=== PATIENT | female | born 1945 | race Caucasian/White ===

== ENCOUNTER 2019-10-07 18:57 | Emergency (ER) | payer MEDICARE, OTHER ==
[~2019-10-07] VITALS: Ht 152.4 cm; Wt 69.4 kg
--- OUTSIDE RECORDS SUMMARY | 2019-10-07 19:00 | XMS REPORT ---
Author [facility] Address Unknown Phone Unavailable Care Team Providers Care Agency Recruiter Name Role Phone Unavailable Unavailable Payers Payer Name Policy Type Policy Number Effective Date Expiration Date Problems This patient has no known problems. Allergies, Adverse Reactions, Alerts Allergy Name Allergy Type Status Severity Reaction(s) Onset Date Inactive Date Treating Clinician Comments No Known Allergies DA Active U 2014-10-28 00:00:00 Medications This patient has no known medications. Results Test Description Test Time Test Comments Text Results Atomic Results Result Comments - MRI PELVIS W/O CON 2019-03-22 14:44:00 FAX: Oleg Gallegos MD [phone] [place]: St: REG FAX: Maggie Franklin MD [phone] Name: CINTIAADRIANEBlanca HARDY [facility] : 1945 Age/S: 73/F [address] [place], [place] [address] Unit #: [id number] Loc: [place] [address] Phys: Maggie Franklin MD Acct: [id number] Dis Date: Status: REG CLI PHONE #: [phone] Exam Date: 03/22/2019 0857 FAX #: [phone] Reason: OSTEITIS DEFORMANS OF MULTIPLE SITES EXAMS: CPT CODE: [id number] MRI PELVIS W/O CON 13864 Study: - MRI PELVIS W/O CON 03/22/2019 7:16 AM Patient Name: ADRIANE CHAMBERLAIN MR: [id number] : 1945; Age: 73 years y/o Female Ordering Physician: Maggie Franklin MD Clinical Indication: OSTEITIS DEFORMANS OF MULTIPLE SITES Comparison: None TECHNIQUE: Multiplanar MR pelvis was performed with and without intravenous gadolinium on a 1.5 Raquel magnet. FINDINGS: ORGANS: Anteverted uterus. Small T2 hyperintense intramural cystic lesion in inferior mid uterine body. Colonic diverticulosis is noted. No bowel obstruction. URINARY BLADDER: Appropriate for degree of distention. LYMPH NODES: No suspicious lymph nodes. PELVIC FLUID: No significant fluid identified. SOFT TISSUES: OSSEOUS STRUCTURES: Diffuse T1 hypointensity seen throughout the lower lumbar spine, sacrum, and pelvis. IMPRESSION: Diffuse sclerotic changes throughout the spine and pelvis, consistent with history of advanced Paget's disease. Differential diagnosis includes osteoblastic metastases and leukemia/lymphoma. SL: [id number] PAGE 1 Signed Report (CONTINUED) FAX: Oleg Gallegos MD [phone] [place]: St: REG FAX: Maggie Franklin MD [phone] ------- Name: ADRIANE CHAMBERLAIN [facility] : 1945 Age/S: 73/F [address] [place] [address] Unit #: [id number] Loc: [place] [address] Phys: Maggie Franklin MD Acct: [id number] Dis Date: Status: REG CLI PHONE #: [phone] Exam Date: 03/22/201957 FAX #: [phone] Reason: OSTEITIS DEFORMANS OF MULTIPLE SITES EXAMS: CPT CODE: [id number] MRI PELVIS W/O CON 47190 <Continued> at 6769 Reported and signed by: Valentino Vega M.D. CC: Oleg Harley MD; Maggie Franklin MD Technologist: RT Lynda(R)(MR) Trnscrd Date/Time/By: 03/22/2019 (4240) : By: [email or web address] Orig Print D/T: S: 03/22/2019 (8999) PAGE 2 Signed Report - NM BONE WHOLE BODY 2019-03-22 11:50:00 FAX: Oleg Gallegos MD [phone] [place]: St: REG FAX: Maggie Franklin MD [phone] Name: ADRIANE CHAMBERLAIN [facility] : 1945 Age/S: 73/F [address] [place] [address] Unit #: [id number] Loc: [place] [address] Phys: Maggie Franklin MD Acct: [id number] Dis Date: Status: REG CLI PHONE #: [phone] Exam Date: 03/22/2019 1124 FAX #: [phone] Reason: M88.89 OSTEITIS DEFORMANS OF MULTIPLE SITES EXAMS: CPT CODE: [id number] NM BONE WHOLE BODY 43311 Nuclear medicine whole-body bone scan 03/22/2019 HISTORY: Neck, shoulder, back pain. PROCEDURE: After the intravenous injection of 25 mCi of technetium 99m HDP, whole body anterior and posterior projection imaging was performed followed by spot images of the ribs, pelvis, and knees. Comparison is made to 07/04/2014 FINDINGS: There is increased activity within the kidneys and urinary bladder. Increased activity within the T9 vertebral body is unchanged. Increased activity within the L4 vertebral body is unchanged. There are mild degenerative changes in both knees, also unchanged. Increased activity involving the calvarium is seen anteriorly, likely representing hyperostosis frontalis. IMPRESSION: 1. No significant change in uptake in lower thoracic spine, lumbar spine, and bilateral knees suggestive of degenerative change. 2. No new area of increased activity. SL: [id number] at 1150 Reported and signed by: Yo Otto M.D. CC: Oleg Harley MD; Maggie Franklin MD Technologist: RT Shirley(R)([facility]) Trnscrd Date/Time/By: 03/22/2019 (0345) : By: [email or web address] Orig Print D/T: S: 03/22/2019 (1838) PAGE 1 Signed Report CREATININE W ESTIMATED GFR 2019-03-22 11:19:00 BEDSIDE CREATININE (test code=CREATBED) 0.6 MG/DL 0.6-1.3 GLOMERULAR FILTRATION RATE POC (test code=GFRBED) 104 ML/MIN ENTER BEDSIDE CREATININE RESULT: 0.61Serial Number: [id number] Name of User Perfo rming Test: R.KELVIN- XR BONE SURVEY [id number] 10:27:00 FAX: Oleg Gallegos MD [phone] [place]: St: [facility] FAX: Maggie Franklin MD [phone] Name: ADRIANE CHAMBERLAIN [facility] : 1945 Age/S: 73/F [address] [place] [address] Unit #: [id number] Loc: [place] [address] Phys: Maggie Franklin MD Acct: [id number] Dis Date: Status: REG CLI PHONE #: [phone] Exam Date: 03/22/2019 1001 FAX #: [phone] Reason: M88.89 OSTEITIS DEFOR MINS OF MULTIPLE SITES EXAMS: CPT CODE: [id number] XR BONE SURVEY COMP 35948 Study: - XR BONE SURVEY COMP 03/22/2019 7:01 AM Pat ient Name: ADRIANE CHAMBERLAIN MR: [id number] : 1945; Age: 73 y ears y/o Female Ordering Physician: Maggie Franklin MD Clini candice Indication: M88.89 OSTEITIS DEFORMINS OF MULTIPLE SITES Compar jose: None SKULL: Patchy sclerotic areas are seen in the f rontal and occipital calvarium SPINE: Diffuse sclerotic serna ges throughout the vertebral bodies and posterior elements. CHEST AND RIBS: Sclerotic changes throughout the bilateral ribs PE LVIS: Mild sclerotic changes throughout the pelvis BILATERAL HUMER US: Mild patchy sclerotic disease throughout the bilateral humeri BILATERAL FEMURS: Heterogeneous patchy sclerotic changes in the bila teral femurs IMPRESSION: Diffuse scler otic changes within the axial and appendicular skeletons are nonspecific , and may represent advanced Paget's disease. Osteoblastic metastases a nd lymphoma/leukemia are also differential. SL: [id number] Electronically Signed by Tahir Vega on at 1027 Reported and signed by: Corey Quijano PAGE 1 Signed Report (GO NUCARSON) FAX: Oleg Gallegos MD [phone] [place]: St: REG FAX : Maggie Franklin MD [phone] Name: ADRIANE CHAMBERLAIN [facility] : 1945 Age/S: 73/F [address] [place] [address] Unit #: [id number] Loc: [place] [facility] [place] [address] Phys: Maggie Franklin MD Acct: [id number] Dis Date: Status: REG C CORA PHONE #: [phone] Exam Date: 03/22 1001 FAX #: [phone] Reason: M88.89 OSTEITIS DEFORMINS OF MULTIPLE SITES EXAMS: CPT CODE: [id number] XR BONE SURVEY COMP 11584 <Continued> CC: Oleg Harley MD; Maggie Franklin MD Technologist: Cta Hill, RT(R), RTT Trnscrd Date/Time/By: 03/22/2019 (1027) : By: [email or web address] Orig Print D/T: S: 03/22/2019 (1035) PAGE 2 Signed Report - MRI L-SPINE W/O [id number] 10:24:00 FAX: Oleg Gallegos MD [phone] [place]: St: REG FAX: Maggie Franklin MD [phone] Name: ADRIANE CHAMBERLAIN [facility] : 1945 Age/S: 73/F [address] [place] [address] Unit #: [id number] Loc: [place] [address] Phys: Maggie Franklin MD Acct: [id number] Dis Date: Status: REG CLI PHONE #: [phone] Exam Date: 03/22/2019 0857 FAX #: [phone] Reason: OSTEITIS DEFORMANS OF MULTIPLE SITES EXAMS: CPT CODE: [id number] MRI L-SPINE W/O CONT 04801 Study: - MRI L-SPINE W/O CONT 03/22/2019 7:16 AM See pitts Name: ADRIANE CHAMBERLAIN MR: [id number] : 1945; Age: 73 years y/o Female Ordering Physician: Maggie Franklin MD Clin ical Indication: OSTEITIS DEFORMANS OF MULTIPLE SITES Comparison: None TECHNIQUE: Multiplanar T1, T2, and STIR weighted noncontrast MRI of the lumbar spine was performed on the 1.5 Raquel magnet. FINDINGS: ALIGNMENT AND GENERAL ASSESSMENT: Five lumbar type vertebral bodies are assumed for purpose of this dic tation with conus medullaris termination at L1-L2. Again seen is severely T1 hypointense bone marrow within the vertebral bodies and posterior eleme nts at all levels. T2 hyperintense renal cysts bilaterally. No spina l cord signal abnormality. DISC SPACES: L1-L 2: No significant disc protrusion, spinal canal narrowing, or neural andres inal narrowing. L2-L3: Symmetric disc bulge without foraminal or c anal stenosis. L3-L4: Symmetric disc bulge with mild bilateral fo raminal stenosis. L4-L5: Symmetric disc bulge without foraminal o r canal stenosis. L5-S1: No significant disc protrusion, spinal c anal narrowing, or neural foraminal narrowing. IMP RESSION: PAGE 1 Signed Report (CONTINUED) FAX: Oleg Gallegos MD [phone] [place]: St: REG FAX: Maggie Franklin MD [phone] Name: ADRIANE MCWILLIAMS [facility] : 1945 Age/S: 73/F [address] [place] [address] Unit #: [id number] Loc: [place] [address] Phys: Maggie Franklin MD Acct: [id number] Dis Date: Status: REG CLI PHONE #: [phone] Exam Date: 03/22/2019 0857 FAX #: [phone] R jake: OSTEITIS DEFORMANS OF MULTIPLE SITES EXAMS: CPT CODE: [id number] MRI L-SPINE W/O CONT 30992 <Continued> 1. Diffuse abnormal bone marrow signal at all levels, representing sclerotic changes, similar to the bone marrow signal seen in the cervical spine in October 2017. Given the patient's history, this may represent advanced Paget's disease, but osteoblastic metastases and lymphoma/leukemia are also the differential. 2. No spinal cord signal abnormality. 3. Mild degenerative bilateral foraminal stenosis at L3-L4. SL: [id number] at 1024 Reported and signed by: Valentino Vega M.D. CC: Oleg Harley MD; Maggie Franklin MD Technologist: RT Lynda(R)(MR) Trnscrd Date/Time/By: 03/22/2019 (1024) : By: [email or web address] Orig Print D/T: S: 03/22/2019 (1027) PAGE 2 Signed Report
[2019-10-07] MEDS ORDERED: ACETAMINOPHEN 325 MG TAB PO ONE (19:07)
[2019-10-07] MEDS ORDERED: SODIUM CHLORIDE 0.9% 1000ML 1,000 ML IV STA (19:07)
[2019-10-07] MEDS ORDERED: ALBUTEROL SULF 0.083% NEB SOLN 3 ML NEB NEB STA (19:07)
[2019-10-07] MEDS ORDERED: IPRATROPIUM BROMIDE 0.02% 2.5 ML NEB NEB STA (19:07)
[2019-10-07] MEDS ORDERED: CEFTRIAXONE SOD 1 GM VIAL IV ONE (19:15)
[2019-10-07] MEDS ORDERED: CLONIDINE HCL 0.1 MG TAB PO ONE (19:15)
[2019-10-07] MEDS ORDERED: IPRATROPIUM BROMIDE 0.02% 2.5 ML NEB ONE (19:59)
[2019-10-07] MEDS ORDERED: ACETAMINOPHEN 325 MG TAB ONE (19:59)
--- NOTE | 2019-10-07 19:59 | Diagnostic Imaging Report ---
EXAMINATION: CXR 2 VIEW - HOPD INDICATION: Chest congestion ^cough ^20191007 ^1919 COMPARISON: None FINDINGS: PA and lateral views TUBES and LINES: None. LUNGS: Diffuse hyperinflation suggestive of small airways disease. Subsegmental atelectasis in the left lung base. There is no evidence of pneumonia or pulmonary edema. PLEURA: No pleural effusion or pneumothorax. HEART AND MEDIASTINUM: The heart is enlarged. The descending thoracic aorta is tortuous. BONES AND SOFT TISSUES: Increased attenuation of the skeleton. No focal osseous lesions. Soft tissues are unremarkable. UPPER ABDOMEN: Unremarkable. IMPRESSION: 1. Diffuse hyperinflation is suggestive of small airways disease. No acute pulmonary process. 2. Increased attenuation of the skeleton may be the result of renal osteodystrophy or metastasis. Correlation with clinical history is needed. Signed by: Dr. Soniya Shen MD on 10/07/2019 7:56 PM
[2019-10-07] MEDS ORDERED: CEFTRIAXONE SOD 1 GM/NS 50 ML 50 ML IV ONE (20:00)
[2019-10-07] MEDS ORDERED: ALBUTEROL SULF 0.083% NEB SOLN 3 ML NEB ONE (20:00)
[2019-10-07 20:53] VITALS: BP 122/66
== END 2019-10-07 20:30 | disposition home or self-care (01) ==
LOC: FSED 18:57
DX: R50.9 Fever, unspecified (principal); R05 Cough; J09.X2 Influenza due to identified novel influenza A virus with other respiratory manifestations; Z85.828 Personal history of other malignant neoplasm of skin
CPT/HCPCS: 71046; 80053; 81003; 82553; 83518; 83880; 84484; 85025; 87400; 93005; 99284; J0696; J7030

== ENCOUNTER 2019-12-28 18:17 | Emergency (ER) | payer MEDICARE, OTHER ==
[~2019-12-28] VITALS: Ht 152.4 cm; Wt 70.4 kg
--- OUTSIDE RECORDS SUMMARY | 2019-12-28 18:20 | XMS REPORT | Summary of Care ---
Author Author [facility] Organization [facility] Address Unknown Phone Unavailable Encounter HQ Javanr_jason(FIN) [id number] Date(s): 12/15/16 - 12/15/16 [facility] [address] [place] [address]- Discharge Disposition: Home or Self Care Attending Physician: Fanny Gudino MD Referring Physician: Fanny Gudino MD Vital Signs No data available for this section Problem List Condition Effective Dates Status Health Status Informan t Abdominal Active pain(Confirmed) Clostridium Active difficile(Confirmed) 1 Diarrhea(Confirmed) Active Osteoporosis(Confirm Active ed) 1Problem added by Discern Expert. Allergies, Adverse Reactions, Alerts Substance Reaction Severity Status NKDA Active Medications No data available for this section Results No data available for this section Immunizations Given and Recorded Vaccine Date Status Refusal Reason influenza virus vaccine, inactivated 10/02/10 G iven Procedures No data available for this section Social History Social History Type Response Assessment and Plan No data available for this section
--- OUTSIDE RECORDS SUMMARY | 2019-12-28 18:20 | XMS REPORT ---
Author Author [facility] t Organization [facility] Address [address] [place] [address] Phone Unavailable Care Team Providers Care Public Employment Mediator Name Role Phone Georgina LAGUNA MD PCP Hector DUEÑAS Attphys Unavailable Ruth Gudino Attphys Payers Payer Name Policy Type Policy Number Effective Date Expiration Date S johan Medicare A & B [id number] 2008 00:00:00 [facility] [id number] 1996 00:00:00 [facility] Problems This patient has no known problems. Allergies, Adverse Reactions, Alerts Allergy Name Allergy Type Status Severity Reaction(s) Onset Date Inacti ve Date Treating Clinician Comments Source No Known Allergies DA Active U 2014-10-28 00:00:00 [facility] Medications This patient has no known medications. Procedures This patient has no known procedures. Encounters Start Date/Time End Date/Time Encounter Type Admission Type [facility] Care Department Encounter ID Source 2019-10-07 18:57:00 2019-10-07 20:30:00 Departed Emergency Room 1 TERENCE DUEÑAS [facility] [id number] [facility] 2016-12-15 09:05:00 2016-12-15 23:59:00 Outpatient Fanny Lim [facility] [id number] [facility] Results Test Description Test Time Test Comments Results Result Comments Source CXR 2 VIEW - HOPD 2019-10-07 19:36:00 [facility] [address] [place] [address] Patient Name: ADRIANE CHAMBERLAIN MR #: [id number] : 1945 Age/Sex: 74/F Req #: [id number] Adm Physician: Ordered by: TERENCE DUEÑAS MD Report #: [id number] Location: [facility] Room/Bed: Procedure: [id number] HOPD/CXR 2 VIEW - HOPD Exam Date: 10/07/19 Exam Time: 1919 REPORT STATUS: Signed EXAMINATION: CXR 2 VIEW - HOPD INDICATION: Chest congestion cough 20191007 COMPARISON: None FINDINGS: PA and lateral views TUBES and LINES: None. LUNGS: Diffuse hyperinflation suggestive of small airways disease. Subsegmental atelectasis in the left lung base. There is no evidence of pneumonia or pulmonary edema. PLEURA: No pleural effusion or pneumothorax. HEART AND MEDIASTINUM: The heart is enlarged. The descending thoracic aorta is tortuous. BONES AND SOFT TISSUES: Increased attenuation of the skeleton. No focal osseous lesions. Soft tissues are unremarkable. UPPER ABDOMEN: Unremarkable. IMPRESSION: 1. Diffuse hyperinflation is suggestive of small airways disease. No acute pulmonary process. 2. Increased attenuation of the skeleton may be the result of renal osteodystrophy or metastasis. Correlation with clinical history is needed. Signed by: Dr. Conrad Bell MD on 10/07/2019 7:56 PM Dictated By: CONRAD BELL MD 55 Transcribed By: NANNETTE on 10/07/191955 COPY TO: TERENCE DUEÑAS MD - MRI PELVIS W/O CON 2019-03-22 14:44:00 FAX: Oleg Gallegos MD [phone] [place]: St: REG FAX: Maggie Franklin MD [phone] Name: ADRIANE CHAMBERLAIN OLESYASOLITARIO [facility] : 1945 Age/S: 73/F [address] [place] [address] Unit #: [id number] Loc: [place] [address] Phys: Maggie Franklin MD Acct: [id number] Dis Date: Status: REG CLI PHONE #: [phone] Exam Date: 03/22/2019 0857 FAX #: [phone] Reason: OSTEITIS DEFORMANS OF MULTIPLE SITES EXAMS: CPT CODE: [id number] MRI PELVIS W/O CON 17890 Study: - MRI PELVIS W/O CON 03/22/2019 7:16 AM Patient Name: ADRIANE CHAMBERLAIN MR: [id number] : 1945; Age: 73 years y/o Female [...] diagnosis includes osteoblastic metastases and leukemia/lymphoma. SL: [id number] PAGE 1 Signed Report (CONTINUED) FAX: Oleg Gallegos MD [phone] [place]: St: REG FAX: Maggie Franklin MD [phone] ------- Name: ADRIANE CHAMBERLAIN OLESYASOLITARIO [facility] : 1945 Age/S: 73/F [address] [place] [address] Unit #: [id number] Loc: [place] [address] Phys: Maggie Franklin MD Acct: [id number] Dis Date: Status: REG CLI PHONE #: [phone] Exam Date: 03/22/2019 0857 FAX #: [phone] Reason: OSTEITIS DEFORMANS OF MULTIPLE SITES EXAMS: CPT CODE: [id number] MRI PELVIS W/O CON 43208 <Continued> at 1971 Reported and signed by: Valentino Vega M.D. CC: Oleg Laguna MD; Maggie Franklin MD Technologist: Loly Bloom RT(R)(MR) Trnscrd Date/Time/By: 03/22/2019 (3001) : By: [email or web address] Orig Print D/T: S: 03/22/2019 (2280) PAGE 2 Signed Report - NM BONE WHOLE BODY 2019-03-22 11:50:00 FAX: Oleg Gallegos MD [phone] [place]: St: REG FAX: Maggie Franklin MD [phone] Name: ADRIANE CHAMBERLAIN [facility] : 1945 Age/S: 73/F [address] [place] [address] Unit #: [id number] Loc: [place] [address] Phys: Maggie Franklin MD Acct: [id number] Dis Date: Status: REG CLI PHONE #: [phone] Exam Date: 03/22/2019 1124 FAX #: [phone] Reason: M88.89 OSTEITIS DEFORMANS OF MULTIPLE SITES EXAMS: CPT CODE: [id number] OR BONE WHOLE BODY 67034 Nuclear medicine whole-body bone scan 03/22/2019 HISTORY: [...] No new area of increased activity. SL: [id number] at 1150 Reported and signed by: Yo Otto M.D. CC: Oleg Laguna MD; Maggie Franklin MD Technologist: DOLORES Watson)([facility]) Trnscrd Date/Time/By: 03/22/2019 (4150) : By: [email or web address] Orig Print D/T: S: 03/22/2019 (6558) PAGE 1 Signed Report CREATININE W ESTIMATED GFR 2019-03-22 11:19:00 Test Item BEDSIDE CREATININE (test code = CREATBED) 0.6 MG/DL 0.6-1.3 N GLOMERULAR FILTRATION RATE POC (test code = GFRBED) 104 ML/MIN ENTER BEDSIDE CREATININE RESULT: 0.61Serial Number: [id number] Name of User Perfo rming Test: PAVEL- XR BONE SURVEY [id number] 10:27:00 FAX: Oleg Gallegos MD [phone] [place]: St: REG FAX: Maggie Franklin MD [phone] Name: ADRIANE CHAMBERLAIN [facility] : 1945 Age/S: 73/F [address] [place] [address] Unit #: [id number] Loc: [facility] [place] [address] Phys: Maggie Franklin MD Acct: [id number] Dis Date: Status: REG CLI PHONE #: [phone] Exam Date: 03/22/2019 1001 FAX #: [phone] Reason: M88.89 OSTEITIS DEFOR MINS OF MULTIPLE SITES EXAMS: CPT CODE: [id number] XR BONE SURVEY COMP 12885 Study: - XR BONE SURVEY COMP 03/22/2019 7:01 AM Pat ient Name: ADRIANE HAYLEY LANZACONCEPCIÓN MR: [id number] : 1945; Age: 73 y ears y/o [...] a nd lymphoma/leukemia are also differential. SL: [id number] Electronically Signed by Tahir Vega on at 1027 Reported and signed by: Corey Quijano PAGE 1 Signed Report (GO NUED) FAX: Oleg Gallegos MD [phone] [place]: St: REG FAX : Maggie Franklin MD [phone] Name: ADRIANE CHAMBERLAINJAILYNSOLITARIO [facility] : 1945 Age/S: 73/F [address] [place] [address] Blvd Unit #: [id number] Loc: [place] [address] Phys: Maggie Franklin MD Acct: [id number] Dis Date: Status: REG [place] PHONE #: [phone] Exam Date: 03/22 1001 FAX #: [phone] Reason: M88.89 OSTEITIS DEFORMINS OF MULTIPLE SITES EXAMS: CPT CODE: [id number] XR BONE SURVEY COMP 57753 <Continued> CC: Oleg Laguna MD; Maggie Franklin MD Technologist: Cat Hill, RT(R), RTT Trnscrd Date/Time/By: 03/22/2019 (2004) : By: [email or web address] Orig Print D/T: S: 03/22/2019 (6151) PAGE 2 Signed Report - MRI L-SPINE W/O [id number] 10:24:00 FAX: Oleg Gallegos MD [phone] [place]: St: REG FAX: Maggie Franklin MD [phone] Name: ADRIANE CHAMBERLAIN [facility] : 1945 Age/S: 73/F [address] [place] [address] Unit #: [id number] Loc: [place] [address] Phys: Maggie Franklin MD Acct: [id number] Dis Date: Status: REG CLI PHONE #: [phone] Exam Date: 03/22/2019 0857 FAX #: [phone] Reason: OSTEITIS DEFORMANS OF MULTIPLE SITES EXAMS: CPT CODE: [id number] MRI L-SPINE W/O CONT 11712 Study: - MRI L-SPINE W/O CONT 03/22/2019 7:16 AM Pa tient Name: ADRIANE CHAMBERLAIN MR: [id number] : 1945; Age: 73 years y/o Female [...] Signed Report (CONTINUED) FAX: Oleg Gallegos MD [phone] [place]: GC St: REG FAX: Maggie Franklin MD [phone] Name: ADRIANE MCWILLIAMS [facility] : 1945 Age/S: 73/F [address] [place] [address] Unit #: [id number] Loc: [place] [address] Phys: Maggie Franklin MD Acct: [id number] Dis Date: Status: REG CLI PHONE #: [phone] Exam Date: 03/22/2019 0857 FAX #: [phone] R jake: OSTEITIS DEFORMANS OF MULTIPLE SITES EXAMS: CPT CODE: [id number] MRI L-SPINE W/O CONT 16742 <Continued> 1. Diffuse abnormal bone marrow signal at all levels, representing sclerotic changes, similar to the bone marrow signal seen in the cervical spine in October 2017. Given the patient's history, this may represent advanced Paget's disease, but osteoblastic metastases and lymphoma/leukemia are also the differential. 2. No spinal cord signal abnormality. 3. Mild degenerative bilateral foraminal stenosis at L3-L4. SL: [id number] at 1024 Reported and signed by: Valentino Vega M.D. CC: Oleg Laguna MD; Maggie Franklin MD Technologist: RT Lynda(Jose Angel)(MR) Trnscrd Date/Time/By: 03/22/2019 (1024) : By: [email or web address] Orig Print D/T: S: 03/22/2019 (1027) PAGE 2 Signed Report
--- OUTSIDE RECORDS SUMMARY | 2019-12-28 18:20 | XMS REPORT | Continuity of Care Document ---
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 [facility] Diarrhea (finding) Active Problem 12/18/2016 [facility] Osteoporosis (disorder) Active Problem 12/18/2016 [facility] CHRONIC OBSTRUCTIVE PULMONARY DISEASE, U Active [facility] Medications No Data Provided for This Section Allergies, Adverse Reactions, Alerts No Known Medication Allergies Immunizations Immunization Date Given Site Status Last Updated Comments Source influenza virus vaccine, inactivated 10/02/2010 Right deltoid completed [facility] Results No Data Provided for This Section Pathology Reports No Data Provided for This Section Diagnostic Reports Report Value Date Source CT Low Dose Lung Screening Pat ient Name: ADRIANE CHAMBERLAIN : 1945; Age: 71 years Female MR: [id number] Study: CT Low Dose Lung Screening 12/15/2016 9:35 AM CDT Clinical Indication: COPD; low dose lung screen - Norma - CT DLP - 96 mGycm; BMI 28.2; CTDI - 2.56L COMPARISON: None HISTORY: Asymptomatic patient meeting NCCN high-risk criteria for lung screening. Patient is not currently a smoker. There is a 20 pack-year history of smoking. COMPARISON: None. TECHNIQUE: Noncontrast, volumetric low-dose CT Chest. kVp = 120 mA = 219 FINDINGS: LUNG NODULES: No nodule is seen. Other Lung Disease: Centrilobular emphysema. Mild bronchiectasis in the perihilar lungs. Dependent atelectasis or mild scarring in the lower lungs. Aorta: Atherosclerosis. Heart / Pericardium: Normal size. Coronary Ca++ / Atherosclerosis: Calcification mitral annulus Adenopathy: 1.3 cm lymph node adjacent to the anterior pericardium. Base of Neck: Several small nodules in the thyroid. Upper Abdomen: No significant finding. OTHER INCIDENTALS: Extensive sclerosis of the spine, sternum, ribs and bony shoulders. LUNG-RADS CATEGORY AND IMPRESSION: 1. Lung RADS Category 1, negative. Maco nue annual screening with low-dose CT. 2. Extensive sclerotic bone lesions of t he spine, ribs and shoulders suspicious for metastatic disease; metabolic bone disorder may be another consideration if no history of malignancy. 3. Mildly enlarged mediastinal lymph nod e. 4. Mild bronchiectasis. Findings discussed with Dr. Gudino at time of dictation. Thank you for choosing the [facility] Lung Screening Program. [id number] 12/15/2016 [facility] Consultation Notes No Data Provided for This Section Discharge Summaries No Data Provided for This Section History and Physicals No Data Provided for This Section Vital Signs No Data Provided for This Section Encounters Location Location Details Encounter Type Encounter Number Reason For Visit Attending Provider ADM Date DC Date Status Source [facility] Outpatient [id number] Fanny Gudino 12/15/2016 12/16/2016 [facility] Procedures No Data Provided for This Section Assessment and Plan No Data Provided for This Section Plan of Care No Data Provided for This Section Social History Social History Date Source Social History TypeResponse 12/16/2016 [facility] Family History No Data Provided for This Section Advance Directives No Data Provided for This Section Functional Status No Data Provided for This Section
[2019-12-28] MEDS ORDERED: ACETAMINOPHEN 325 MG TAB PO STA (18:40)
[2019-12-28] MEDS ORDERED: SODIUM CHLORIDE 0.9% 500ML 500 ML IV STA (18:40)
[2019-12-28] MEDS ORDERED: CEFTRIAXONE SOD 1 GM VIAL IV ONE (18:45)
--- NOTE | 2019-12-28 18:51 | Emergency Department Note ---
History of Present Illnes History of Present Illness Chief Complaint: General Medicine Complaints History of Present Illness This is a 74 year old female hx emphysema not on home oxygen yet, c/o f/c left sided sore throat for 3 hours, temp was high 101. at home. 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 she aslo c/o bladder pain, some dysuria, and abdominal discomfort for 3 days . 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, Family Member Arrival Mode: Car [employer] System Admin Required: No Onset (how long ago): hour(s) (3 hours) Severity: moderate Duration (how long): hour(s) (3 hours) Timing of current episode: unable to specify Progression: improving Context: other (abdominal discomfort and constipation) Relieving factors: medication Exacerbating factors: none Associated symptoms: fever/chills, malaise Treatments prior to arrival: antipyretic Past Medical/Family History Physician Review I have reviewed the patient's past medical and family history. Any updates have been documented here. Past Medical History Recent Fever: Yes Clinical Suspicion of Infectio: Yes New/Unexplained Change in Ment: No Past Medical History: COPD Other Medical History: emphysema Past Surgical History: , Hernia Repair Other Surgery: bilateral carpal tunnel repair skin cancer removed from her nose Social History Smoking Cessation: Former smoker Counseling Performed: No Alcohol Use: None Any Illegal Drug Use: No TB Exposure/Symptoms: No Physically hurt or threatened: No Family History Family history of heart diseas: No Other Last Tetanus: OVER 10 YEARS Any Pre-Existing Lines (PICC,: No Is patient up to date on immun: Yes Last Flu: UTD Last Pneumovax: UTD Review of Systems Review of Systems Constitutional: no symptoms, as per HPI, chills, fever EENTM: no symptoms, throat pain Cardiovascular: no symptoms Respiratory: as per HPI, other (She has SOB but it is her base line) Gastrointestinal: constipation Genitourinary: dysuria (bladder discomfort), other Musculoskeletal: no symptoms Neurological: no symptoms Psychological: no symptoms Endocrine: no symptoms Hematological/Lymphatic: no symptoms Review of other systems All other systems reviewed and negative. Physical Exam Related Data Allergies: Coded Allergies: No Known Allergies (Unverified , 10/07/19) Triage Vital Signs Vital Signs Date Time Temp Pulse Resp B/P (MAP) Pulse Ox O2 Delivery O2 Flow Rate FiO2 12/28/19 18:23 99.6 77 18 172/97 95 Vital signs reviewed: Yes Physical Exam CONSTITUTIONAL Constitutional: well-developed, well-nourished, obese HENT HENT: normocephalic, atraumatic, oropharynx clear/moist, nose normal HENT L/R: left ext ear normal, right ext ear normal EYES Eyes: PERRL, conjunctivae normal NECK Neck: ROM normal PULMONARY Pulmonary: effort normal, breath sounds normal CARDIOVASCULAR Cardiovascular: regular rhythm, heart sounds normal, capillary refill normal, normal rate GASTROINTESTINAL Abdominal: soft, nontender, bowel sounds normal, other (obsese abdomen) GENITOURINARY Genitourinary: exam deferred SKIN Skin: warm, dry MUSCULOSKELETAL Musculoskeletal: ROM normal NEUROLOGICAL Neurological: alert, oriented x 3, no gross motor or sensory deficits PSYCHOLOGICAL Psychological: mood/affect normal, judgement normal Results Laboratory Lab results reviewed: Yes Laboratory comments lactic acid normal, CBC wnl, CMP wnl. Ua has large leukocyte esterase and positive nitrite c/w UTI. Since she has fever from UTI, she is likely to have gram negative sepsis Imaging Imaging results reviewed: Yes Impressions COPD, no pna Imaging Comments I have read radiology report. since pt has no cough, her SOB is at her base line, I doubt she has PNA. Critical Care Time Subsequent provider I assumed direction of critical care for this patient from another provider of my specialty. Assessment & Plan Assessment & Plan Problems: (1) Gram negative sepsis (2) Urinary tract infection (3) Fever (4) Constipation Assessment & Plan most likely UTI, but she has sore throat so will look for viral illness as well Reassessment Reassessment time: 19:28 Reassessment doing better,taking PO well, want sot go home Depart Disposition: HOME, SELF-CARE Last Vital Signs Date Time Temp Pulse Resp B/P (MAP) Pulse Ox O2 Delivery O2 Flow Rate FiO2 12/28/19 18:23 99.6 77 18 172/97 95 Home Meds Active Scripts Magnesium Hydroxide (MILK OF MAGNESIA) 400 Mg/5 Ml Oral.susp, 60 ML PO ONCE for 1 Day, #60 ML Prov:TERENCE DUEÑAS MD 12/28/19 Cefdinir (OMNICEF) 300 Mg Capsule, 300 MG PO BID for 10 Days, CAP Prov:TERENCE DUEÑAS MD 12/28/19 Medications in the ED Ceftriaxone Sodium 1 gm ONCE ONCE IV ; Start 12/28/19 at 18:45; Stop 12/28/19 at 18:46; Status UNV Sodium Chloride 500 ml @ 0 mls/hr Q0M STAT IV ; Start 12/28/19 at 18:40; Stop 12/28/19 at 18:41 Acetaminophen 650 mg ONCE STAT PO ; Start 12/28/19 at 18:40; Stop 12/28/19 at 18:41; Status UNV Attestation Provider Attestation case discussed with Dr Blanca Harley, her PCP TERENCE DUEÑAS MD December 28, 2019 18:51
[2019-12-28] MEDS ORDERED: CEFTRIAXONE SOD 1 GM/NS 50 ML 50 ML IV ONE (19:14)
[2019-12-28] MEDS ORDERED: MILK OF MA400 MG/5 M PO (19:31)
[2019-12-28] MEDS ORDERED: CEFDINIR300 MG PO (19:31)
--- NOTE | 2019-12-28 19:47 | Diagnostic Imaging Report ---
EXAMINATION: CXR 1 [facility] INDICATION: ^SOB, fever ^[id number] ^1914 COMPARISON: 10/07/2019 FINDINGS: AP view TUBES and LINES: None. LUNGS: Lungs are well inflated. Linear retrocardiac opacity, also seen on prior exam, likely scarring. Bilateral infrahilar haziness. PLEURA: No significant pleural effusion or pneumothorax. HEART AND MEDIASTINUM: The cardiomediastinal silhouette is unremarkable. Aorta is calcified and tortuous. BONES AND SOFT TISSUES: Heterogeneous appearance of the visualized portion of the bilateral humeri as well as overall increased skeletal sclerosis, again seen. Soft tissues are unremarkable. UPPER ABDOMEN: No free air under the diaphragm. IMPRESSION: Bilateral infrahilar haziness. Underlying pneumonia cannot be excluded. Signed by: Dr. Alonso Barber MD on 12/28/2019 7:44 PM
[2019-12-29] MEDS ORDERED: MULTI-VITAMIN1 EACH PO (04:36)
[2019-12-29] MEDS ORDERED: AMBIEN CR6.25 MG PO (04:36)
[2019-12-29] MEDS ORDERED: fish oil PO (04:49)
== END 2019-12-28 20:06 | disposition home or self-care (01) ==
LOC: FSED 18:17
DX: R50.9 Fever, unspecified (principal); A41.50 Gram-negative sepsis, unspecified; R30.0 Dysuria; R10.9 Unspecified abdominal pain; N39.0 Urinary tract infection, site not specified; R39.89 Other symptoms and signs involving the genitourinary system; K59.00 Constipation, unspecified; J44.9 Chronic obstructive pulmonary disease, unspecified; Z87.891 Personal history of nicotine dependence
CPT/HCPCS: 71045; 80048; 80053; 80076; 81003; 83518; 85025; 87040; 87071; 87205; 87400; 99284; J0696; J7040; 87186

== ENCOUNTER 2019-12-28 23:18 | Inpatient (IN) | payer MEDICARE, OTHER ==
[~2019-12-28] VITALS: Ht 152.4 cm; Wt 73.3 kg
[~2019-12-28 23:18] MED LIST: CEFDINIR300 MG PO; MILK OF MA400 MG/5 M PO
--- OUTSIDE RECORDS SUMMARY | 2019-12-28 23:19 | XMS REPORT | Continuity of Care Document ---
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 [facility] Diarrhea (finding) Active Problem 12/18/2016 [facility] Osteoporosis (disorder) Active Problem 12/18/2016 [facility] CHRONIC OBSTRUCTIVE PULMONARY DISEASE, U Active [facility] Medications No Data Provided for This [...] : 1945; Age: 71 years Female MR: [id number] Study: CT Low Dose Lung Screening 12/15/2016 [...] of dictation. Thank you for choosing the [facility] Lung Screening [facility]. [id number] 12/15/2016 [facility] Consultation Notes No Data Provided for This Section Discharge Summaries No Data Provided for This Section History and Physicals No Data Provided for This Section Vital Signs No Data Provided for This Section Encounters Location Location Details Encounter Type Encounter Number Reason For Visit Attending Provider ADM Date DC Date Status Source [facility] Outpatient [id number] Fanny Gudino 12/15/2016 12/16/2016 [facility] Procedures No Data Provided for This Section Assessment and Plan No Data Provided for This Section Plan of Care No Data Provided for This Section Social History Social History Date Source Social History TypeResponse 12/16/2016 [facility] Family History No Data Provided for This Section Advance Directives No Data Provided for This Section Functional Status No Data Provided for This Section
--- OUTSIDE RECORDS SUMMARY | 2019-12-28 23:20 | XMS REPORT ---
Author Author [facility] t Organization [facility] Address [address] [place] [place] [address] Phone Unavailable Care Team Providers Care Capacitor Tester Name Role Phone MD Georgina LAGUNA MD PCP Hector DUEÑAS Attphys Unavailable Ruth Gudino Attphys [phone] Payers Payer Name Policy Type Policy Number Effective Date Expiration Date S ource Medicare A & B [id number] 2008 00:00:00 MALAIKA [facility] [id number] 1996 00:00:00 [facility] Advance Directives Directive Decision Effective Date Termination Date Comments Sour ce Yes N/A [facility] Problems Condition Name Condition Details Condition Category Status Onset Date Resolution Date Last Treatment Date Treating Clinician Comments Source F[facility] infection Problem [facility] Constipation Problem [facility] Sepsis due to gram-negative bacteria Problem [facility] Allergies, Adverse Reactions, Alerts Allergy Name Allergy Type Status Severity Reaction(s) Onset Date Inacti ve Date Treating Clinician Comments Source No Known Allergies DA Active U 2014-10-28 00:00:00 [facility] Social History Social Habit Start Date Stop Date Quantity Comments Source Sex Assigned At 1945 00:00:00 1945 00[birth year]:00 Female [facility] Medications Ordered Medication Name Filled Medication Name Start Date Stop Da te Current Medication? Ordering Clinician Indication Dosage Frequency Signature (SIG) Comments Components Source Cefdinir (Omnicef) 300 Mg CAPSULE Cefdinir (Omnicef) 300 Mg CAPSULE 2019-12-28 19:31:00 Yes 300 [facility] Magnesium Hydroxide (Milk Of Magnesia) 400 Mg/5 Ml ORA L.SUSP Magnesium Hydroxide (Milk Of Magnesia) 400 Mg/5 Ml ORAL.SUSP 2019-12-28 19:31:00 Yes 60 [facility] Vital Signs Vital Name Observation Time Observation Value Comments Source Weight 2019-12-28 18:23:00 155.13 [lb_av] [facility] BMI (Body Mass Index) 2019-12-28 18:23:00 30.3 kg/m2 [facility] Body Temperature 2019-10-07 19:53:00 99.6 [degF] [facility] Procedures This patient has no known procedures. Plan of Care Planned Activity Planned Date Details Comments Source Future Scheduled Test Blood culture [code = 43092916] [facility] Future Scheduled Test Urine color determination [code = 5778-6] [facility] Future Scheduled Test Urine clarity [code = 20336-8] [facility] Future Scheduled Test Specific gravity of Urine by Test strip [code = 5811-5] [facility] Future Scheduled Test Urine pH measureme nt by automated test strip [code = 83270-6] [facility] Future Scheduled Test Urine leukocyte es terase detection by automated test strip [code = 01506-5] [facility] Future Scheduled Test Urine nitrite dete ction by automated test strip [code = 83036-5] [facility] Future Scheduled Test Urine protein dete ction by automated test strip [code = 93182-1] [facility] Future Scheduled Test Urine glucose dete ction by automated test strip [code = 53833-4] [facility] Future Scheduled Test Urine ketones dete ction by automated test strip [code = 09545-1] [facility] Future Scheduled Test Urine urobilinogen measurement by test strip (mass/volume) [code = 45281-6] [facility] Future Scheduled Test Urine total bilirubin detection [code = 1977-8] [facility] Future Scheduled Test Urine erythrocytes detection [co de = 71864-7] [facility] Future Scheduled Test Automated urine se diment leukocyte count by microscopy (number/high power field) [code = 5821-4] [facility] Future Scheduled Test Erythrocytes detec tion in urine sediment by light microscopy [code = 08346-6] [facility] Future Scheduled Test Bacteria detection in urine sediment by light microscopy [code = 38280-8] [facility] Future Scheduled Test Epithelial cells d etection in urine sediment by light microscopy [code = 15626-1] [facility] Goal Patient referral [code = 3996701 ] [facility] Instructions Fever - Adult [facility] Instructions Urinary Tract Infection - Women [facility] Encounters Start Date/Time End Date/Time Encounter Type Admission Type Attendi [facility] Care Department Encounter ID Source 2019-12-28 18:17:00 2019-12-28 20:06:00 [facility]arted [facility] [id number] [facility] 2019-10-07 17:57:00 2019-10-07 19:30:00 Departed Emergency Room 1 [facility] [id number] [facility] 2016-12-15 09:05:00 2016-12-15 23:59:00 Outpatient Fanny Lim [facility] [id number] [facility] Results Test Description Test Time Test Comments Results Result Comments Source CXR 1 [facility] 2019-12-28 19:40:00 [place] [address] Patient Name: ADRIANE CHAMBERLAIN MR #: [id number] : 1945 Age/Sex: 74/F Req #: [id number] Adm Physician: Ordered by: TERENCE DUEÑAS MD Report #: [id number] [facility] Room/Bed: Procedure: [id number] HOPD/CXR 1 VEW - HOPD Exam Date: 12/28/19 Exam Time: 1914 REPORT STATUS: Signed EXAMINATION: CXR 1 [facility] INDICATION: SOB, fever [id number] COMPARISON: 10/07/2019 FINDINGS: AP view TUBES and LINES: None. LUNGS: Lungs are well inflated. Linear retrocardiac opacity, also seen on prior exam, likely scarring. Bilateral infrahilar haziness. PLEURA: No significant pleural effusion or pneumothorax. HEART AND MEDIASTINUM: The cardiomediastinal silhouette is unremarkable. Aorta is calcified and tortuous. BONES AND SOFT TISSUES: Heterogeneous appearance of the visualized portion of the bilateral humeri as well as overall increased skeletal sclerosis, again seen. Soft tissues are unremarkable. UPPER ABDOMEN: No free air under the diaphragm. IMPRESSION: Bilateral infrahilar haziness. Underlying pneumonia cannot be excluded. Signed by: Dr. Alonso Malik MD on 12/28/2019 7:44 PM Dictated By: ALONSO MALIK MD 43 Transcribed By: NANNETTE on 12/28/191943 COPY TO: TERENCE DUEÑAS MD CXR 2 VIEW - HOPD 2019-10-07 19:36:00 [place] [address] Patient Name: ADRIANE CHAMBERLAIN MR #: [id number] : 1945 Age/Sex: 74/F Req #: [id number] Adm Physician: Ordered by: TERENCE DUEÑAS MD Report #: [id number] [facility] Room/Bed: Procedure: [id number] HOPD/CXR 2 VIEW - HOPD Exam Date: [...] CON 2019-03-22 14:44:00 FAX: Oleg Gallegos MD [phone] [place]: St: [facility] FAX: Maggie Franklin MD [phone] Name: ADRIANE CHAMBERLAIN [facility] : 1945 Age/S: 73/F [address] [place] [address] Unit #: [id number] Loc: [place] [address] Phys: Maggie Franklin MD Acct: [id number] Dis Date: Status: REG CLI PHONE #: [phone] Exam Date: 03/22/2019 0857 FAX #: [phone] Reason: OSTEITIS DEFORMANS OF MULTIPLE SITES EXAMS: CPT CODE: [id number] MRI PELVIS W/O CON 70431 Study: - MRI PELVIS W/O CON 03/22/2019 7:16 AM Patient Name: ADRIANE CHAMBERLAIN MR: [id number] : 1945; Age: 73 years y/o Female [...] diagnosis includes osteoblastic metastases and leukemia/lymphoma. SL: [id number] PAGE 1 Signed Report (CONTINUED) FAX: Oleg Gallegos MD [phone] [place]: St: REG FAX: Mgagie Franklin MD [phone] ------- Name: ADRIANE CHAMBERLAIN [facility] : 1945 Age/S: 73/F [address] [place] [address] Unit #: [id number] Loc: [place] [address] Phys: Maggie Franklin MD Acct: [id number] Dis Date: Status: REG CLI PHONE #: [phone] Exam Date: 03/22/2019 0857 FAX #: [phone] Reason: OSTEITIS DEFORMANS OF MULTIPLE SITES EXAMS: CPT CODE: [id number] MRI PELVIS W/O CON 80212 <Continued> at 1444 Reported and signed by: Valentino Vega M.D. CC: Oleg Laguna MD; Maggie Franklin MD Technologist: Loly Bloom RT(R)(MR) Trnscrd Date/Time/By: 03/22/2019 (1442) : By: [email or web address] Orig Print D/T: S: 03/22/2019 (3002) PAGE 2 Signed Report - NM BONE WHOLE BODY 2019-03-22 11:50:00 FAX: Oleg Gallegos MD [phone] [place]: St: REG FAX: Maggie Franklin MD [phone] Name: ADRIANE CHAMBERLAIN [facility] : 1945 Age/S: 73/F [address] [place] [address] Unit #: [id number] Loc: [place] [address] Phys: Maggie Franklin MD Acct: [id number] Dis Date: Status: REG CLI PHONE #: [phone] Exam Date: 03/22/2019 1124 FAX #: [phone] Reason: M88.89 OSTEITIS DEFORMANS OF MULTIPLE SITES EXAMS: CPT CODE: [id number] NM BONE WHOLE BODY 50103 Nuclear medicine whole-body bone scan 03/22/2019 HISTORY: [...] No new area of increased activity. SL: [id number] at 1150 Reported and signed by: Yo Otto M.D. CC: Oleg Laguna MD; Maggie Franklin MD Technologist: RT Shirley(R)([facility]) Trnscrd Date/Time/By: 03/22/2019 (6840) : By: [email or web address] Orig Print D/T: S: 03/22/2019 (5127) PAGE 1 Signed Report CREATININE W ESTIMATED GFR 2019-03-22 11:19:00 Test Item BEDSIDE CREATININE (test code = CREATBED) 0.6 MG/DL 0.6-1.3 N GLOMERULAR FILTRATION RATE POC (test code = GFRBED) 104 ML/MIN ENTER BEDSIDE CREATININE RESULT: 0.61Serial Number: [id number] Name of User Perfo rming Test: PAVEL- XR BONE SURVEY [id number] 10:27:00 FAX: Oleg Gallegos MD [phone] [place]: St: REG FAX: Maggie Franklin MD [phone] Name: ADRIANE CHAMBERLAIN [facility] : 1945 Age/S: 73/F [address] [place] [address] Unit #: [id number] Loc: [place] [address] Phys: Maggie Franklin MD Acct: [id number] Dis Date: Status: REG CLI PHONE #: [phone] Exam Date: 03/22/2019 1001 FAX #: [phone] Reason: M88.89 OSTEITIS DEFOR MINS OF MULTIPLE SITES EXAMS: CPT CODE: [id number] XR BONE SURVEY COMP 79874 Study: - XR BONE SURVEY COMP 03/22/2019 7:01 AM Pat ient Name: ADRIANE CHAMBERLAIN MR: [id number] : 1945; Age: 73 y ears y/o [...] a nd lymphoma/leukemia are also differential. SL: [id number] Electronically Signed by Tahir Vega on at 1027 Reported and signed by: Corey Quijano PAGE 1 Signed Report (GO NUCARSON) FAX: Oleg Gallegos MD [phone] [place]: St: REG FAX : Maggie Franklin MD [phone] Name: ADRIANE CHAMBERLAIN [facility] : 1945 Age/S: 73/F [address] [place] [address] Unit #: [id number] Loc: [place] [address] Phys: Maggie Franklin MD Acct: [id number] Dis Date: Status: REG Vale SHEPHERD PHONE #: [phone] Exam Date: 03/22 1001 FAX #: [phone] Reason: M88.89 OSTEITIS DEFORMINS OF MULTIPLE SITES EXAMS: CPT CODE: [id number] XR BONE SURVEY COMP 36691 <Continued> CC: Oleg Laguna MD; Maggie Franklin MD Technologist: RT Abelino(R), RTT Trniard Date/Time/By: 03/22/2019 (1027) : By: [email or web address] Orig Print D/T: S: 03/22/2019 (8549) PAGE 2 Signed Report - MRI L-SPINE W/O [id number] 10:24:00 FAX: Oleg Gallegos MD [phone] [place]: St: REG FAX: Maggie Franklin MD [phone] Name: ADRIANE CHAMBERLAIN [facility] : 1945 Age/S: 73/F [address] [place] [address] Unit #: [id number] Loc: [place] [address] Phys: Maggie Franklin MD Acct: [id number] Dis Date: Status: REG CLI PHONE #: [phone] Exam Date: 03/22/2019 0857 FAX #: [phone] Reason: OSTEITIS DEFORMANS OF MULTIPLE SITES EXAMS: CPT CODE: [id number] MRI L-SPINE W/O CONT 79721 Study: - MRI L-SPINE W/O CONT 03/22/2019 7:16 AM Pa tient Name: ADRIANE CHANDLERJAILYNSOLITARIO CHAMBERLAIN MR: [id number] : 1945; Age: 73 years y/o Female [...] Signed Report (CONTINUED) FAX: Oleg Gallegos MD [phone] [place]: GC St: REG FAX: Maggie Franklin MD [phone] Name: DAVID LATHAMADRIANE [facility]ITAR[facility] : 1945 Age/S: 73/F [address] [place] [address] Unit #: [id number] Loc: [place] [address] Phys: Maggie Franklin MD Acct: [id number] Dis Date: Status: REG CLI PHONE #: [phone] Exam Date: 03/22/2019 0857 FAX #: [phone] R jake: OSTEITIS DEFORMANS OF MULTIPLE SITES EXAMS: CPT CODE: [id number] MRI L-SPINE W/O CONT 47097 <Continued> 1. Diffuse abnormal bone marrow signal at all levels, representing sclerotic changes, similar to the bone marrow signal seen in the cervical spine in October 2017. Given the patient's history, this may represent advanced Paget's disease, but osteoblastic metastases and lymphoma/leukemia are also the differential. 2. No spinal cord signal abnormality. 3. Mild degenerative bilateral foraminal stenosis at L3-L4. SL: [id number] at 1024 Reported and signed by: Valentino Vega M.D. CC: Oleg Laguna MD; Maggie Franklin MD Technologist: RT Lynda(Jose Angel)(MR) Trnscrd Date/Time/By: 03/22/2019 (1024) : By: [email or web address] Orig Print D/T: S: 03/22/2019 (1026) PAGE 2 Signed Report
[2019-12-28] MEDS ORDERED: ONDANSETRON HCL INJ 2MG/ML 2ML 2 MG/ML VIAL IV STA (23:22)
[2019-12-28] MEDS ORDERED: IBUPROFEN 600 MG TAB PO STA (23:22)
[2019-12-28] MEDS ORDERED: CEFEPIME 2 GM/NS 0.9% 100 ML 100 ML IV STA (23:22)
--- NOTE | 2019-12-28 23:37 | Emergency Department Note ---
History of Present Illnes History of Present Illness Chief Complaint: General Medicine Complaints History of Present Illness This is a 74 year old female with h/o copd who presents via ems for fever, n/v, dysuria, body aches and dry cough. pt seen for same about 7 hours ago a the hopd for same and diagnosed with uti, given a shot of rocephin and prescribed cefdinir. pt states when her fever started again tonight she called ems. 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 Any updates have been documented here. Past Medical History Recent Fever: Yes Clinical Suspicion of Infectio: Yes New/Unexplained Change in Ment: No Past Medical History: COPD Other Medical History: emphysema Past Surgical History: , Hernia Repair Other Surgery: bilateral carpal tunnel repair skin cancer removed from her nose Social History Smoking Cessation: Former smoker Alcohol Use: None Any Illegal Drug Use: No Family History Family history of heart diseas: No Other Last Tetanus: OVER 10 YEARS Review of Systems Review of Systems Constitutional: chills, fever EENTM: no symptoms Cardiovascular: no symptoms Respiratory: cough (non productive), dyspnea on exertion Gastrointestinal: nausea, vomiting Genitourinary: dysuria, frequency, pain Musculoskeletal: as per HPI Neurological: no symptoms Psychological: no symptoms Endocrine: no symptoms Hematological/Lymphatic: no symptoms Review of other systems All other systems reviewed and negative. Physical Exam Related Data Allergies: Coded Allergies: No Known Allergies (Unverified , 10/07/19) Triage Vital Signs Vital Signs Date Time Temp Pulse Resp B/P (MAP) Pulse Ox O2 Delivery O2 Flow Rate FiO2 12/28/19 23:23 101.7 98 18 152/61 96 Vital signs reviewed: Yes Physical Exam CONSTITUTIONAL Constitutional: well-developed, well-nourished HENT HENT: normocephalic, atraumatic, oropharynx clear/moist, nose normal HENT L/R: left ext ear normal, right ext ear normal EYES Eyes: PERRL, conjunctivae normal NECK Neck: ROM normal PULMONARY Pulmonary: effort normal, other (breath sounds mildly decreased at base bilateral) CARDIOVASCULAR Cardiovascular: regular rhythm, heart sounds normal, capillary refill normal, normal rate GASTROINTESTINAL Abdominal: soft, nontender, bowel sounds normal GENITOURINARY Genitourinary: exam deferred SKIN Skin: warm, dry MUSCULOSKELETAL Musculoskeletal: ROM normal NEUROLOGICAL Neurological: alert, oriented x 3, no gross motor or sensory deficits PSYCHOLOGICAL Psychological: mood/affect normal, judgement normal Results Laboratory Laboratory Laboratory Tests Test 12/29/19 01:32 12/29/19 00:03 12/28/19 23:10 Lactic Acid Level 1.6 mmol/L (0.5-2.0) 2.1 mmol/L (0.5-2.0) Urine Color Yellow (YELLOW) Urine Clarity Cloudy (CLEAR) Urine pH 7 (5 - 7) Urine Specific [place] 1.025 (1.010-1.025) Urine Protein 2+ (NEGATIVE) Urine Glucose (UA) Negative (NEGATIVE) Urine Ketones Negative (NEGATIVE) Urine Blood Large (NEGATIVE) Urine Nitrite Positive (NEGATIVE) Urine Bilirubin Negative (NEGATIVE) Urine Urobilinogen 0.2 mg/dL (0.2 - 1) Urine Leukocyte Esterase Trace (NEGATIVE) Urine RBC >50 /HPF (0-5) Urine WBC >50 /HPF (0-5) Urine Epithelial Cells Moderate /LPF (NONE) Urine Bacteria Many /HPF (NONE) Influenza Virus Types A,B Antigen Negative (NEGATIVE) White Blood Count 6.43 x10e3/uL (4.8-10.8) Red Blood Count 4.11 x10e6/uL (3.6-5.1) Hemoglobin 11.7 g/dL (12.0-16.0) Hematocrit 36.9 % (34.2-44.1) Mean Corpuscular Volume 89.8 fL (81-99) Mean Corpuscular Hemoglobin 28.5 pg (28-32) Mean Corpuscular Hemoglobin Concent 31.7 g/dL (31-35) Red Cell Distribution Width 16.5 % (11.7-14.4) Platelet Count 266 x10e3/uL (140-360) Neutrophils (%) (Auto) 84.0 % (38.7-80.0) Lymphocytes (%) (Auto) 11.5 % (18.0-39.1) Monocytes (%) (Auto) 2.8 % (4.4-11.3) Eosinophils (%) (Auto) 0.9 % (0.0-6.0) Basophils (%) (Auto) 0.3 % (0.0-1.0) Neutrophils # (Auto) 5.4 (2.1-6.9) Lymphocytes # (Auto) 0.7 (1.0-3.2) Monocytes # (Auto) 0.2 (0.2-0.8) Eosinophils # (Auto) 0.1 (0.0-0.4) Basophils # (Auto) 0.0 (0.0-0.1) Absolute Immature Granulocyte (auto 0.03 x10e3/uL (0-0.1) Prothrombin Time 12.4 seconds (11.9-14.5) Prothromb Time International Ratio 0.88 Activated Partial Thromboplast Time 23.7 seconds (23.8-35.5) Sodium Level 137 mmol/L (136-145) Potassium Level 4.1 mmol/L (3.5-5.1) Chloride Level 104 mmol/L (98-107) Carbon Dioxide Level 23 mmol/L (22-29) Anion Gap 14.1 mmol/L (8-16) Blood Urea Nitrogen 18 mg/dL (7-26) Creatinine 1.01 mg/dL (0.57-1.11) Estimat Glomerular Filtration Rate 53 ML/MIN (60-) BUN/Creatinine Ratio 18 (6-25) Glucose Level 150 mg/dL (74-118) Calcium Level 9.3 mg/dL (8.4-10.2) Total Bilirubin 0.7 mg/dL (0.2-1.2) Aspartate Amino Transf (AST/SGOT) 16 IU/L (5-34) Alanine Aminotransferase (ALT/SGPT) 18 IU/L (0-55) Alkaline Phosphatase 67 IU/L (40-150) Creatine Kinase 52 IU/L (29-168) Creatine Kinase MB < 1.00 ng/mL (0-5.0) Troponin I < 0.050 ng/mL (0-0.300) Total Protein 6.8 g/dL (6.5-8.1) Albumin 3.6 g/dL (3.5-5.0) Globulin 3.2 g/dL (2.3-3.5) Albumin/Globulin Ratio 1.1 (0.8-2.0) Lab results reviewed: Yes Imaging Imaging results reviewed: Yes Imaging Comments cxr done earlier today showed infrahilar haziness, possible pneumonia, cxr done tonight states no interval change from previous cxr Procedures 12 Lead ECG Interpretation Cab Station Attendant: Interpreted by ED physician Rhythm: sinus rhythm Ectopy: atrial premature contractions Rate: normal (95) QRS axis: normal ST segments normal: Yes T waves normal: Yes Q waves: V1 Clinical Impression: dysrhythmia - nonspecific Critical Care Time Subsequent provider I assumed direction of critical care for this patient from another provider of my specialty. Assessment & Plan Assessment & Plan Problems: (1) Sepsis (2) Pneumonia (3) Fever (4) Urinary tract infection Assessment & Plan pt with fever,chills, nonproductive cough, dysuria sirs criteria heart rate greater than 90, temp 101.1 cbc, cmp, ekg, cardiac enzymes, pt/ptt, lactic acid, ua, blood cultures, urine culture, cxr ordered to eval for uti, sepsis, pneumonia, electrolyte abnormality, myocardial infarction cefepime 2 grams iv ordered zofran 4 mg iv ordered motrin 600 mg po ordered pt's intitial lactic acid 2.1, 1 liter ns iv bolus ordered, will recheck lactic acid after fluid bolus complete REPEAT LACTIC ACID 1.6 Last Vital Signs Date Time Temp Pulse Resp B/P (MAP) Pulse Ox O2 Delivery O2 Flow Rate FiO2 12/28/19 23:23 101.7 98 18 152/61 96 Home Meds Active Scripts Magnesium Hydroxide (MILK OF MAGNESIA) 400 Mg/5 Ml Oral.susp, 60 ML PO ONCE for 1 Day, #60 ML Prov:TERENCE DUEÑAS MD 12/28/19 Cefdinir (OMNICEF) 300 Mg Capsule, 300 MG PO BID for 10 Days, CAP Prov:TERENCE DUEÑAS MD 12/28/19 Medications in the ED Cefepime HCl 100 ml @ 200 mls/hr ONCE STAT IV ; Start 12/28/19 at 23:22; Stop 12/28/19 at 23:51 Ibuprofen 600 mg ONCE STAT PO ; Start 12/28/19 at 23:22; Stop 12/28/19 at 23:23 Ondansetron HCl 4 mg NOW STAT IV ; Start 12/28/19 at 23:22; Stop 12/28/19 at 23:23 ANGELO FUNEZ MD December 28, 2019 23:37
[2019-12-28 23:47] LABS: BASOPHILS % 0.3 % (0.0-1.0); EOSINOPHILS # (AUTO) 0.1 (0.0-0.4); EOSINOPHILS % 0.9 % (0.0-6.0); HEMATOCRIT 36.9 % (34.2-44.1); HEMOGLOBIN 11.7 g/dL (12.0-16.0); LYMPHOCYTES # (AUTO) 0.7 (1.0-3.2); LYMPHOCYTES % 11.5 % (18.0-39.1); MEAN CORPUSCULAR HEMOGLOBIN 28.5 pg (28-32); MEAN CORPUSCULAR HGB CONC 31.7 g/dL (31-35); MEAN CORPUSCULAR VOLUME 89.8 fL (81-99); MONOCYTES # (AUTO) 0.2 (0.2-0.8); MONOCYTES % 2.8 % (4.4-11.3); NEUTROPHILS # (AUTO) 5.4 (2.1-6.9); PLATELET COUNT 266 x10e3/uL (140-360); RED BLOOD COUNT 4.11 x10e6/uL (3.6-5.1); RED CELL DISTRIBUTION WIDTH 16.5 % (11.7-14.4)
[2019-12-29] VITALS (8 sets, daily range): BP systolic 101–123; BP diastolic 53–83
[2019-12-29] MEDS ORDERED: AZITHROMYCIN 500MG/NS 250 ML 250 ML IV ONE
[2019-12-29 00:04] LABS: INR 0.88; PROTHROMBIN TIME 12.4 seconds (11.9-14.5)
[2019-12-29 00:05] LABS: PARTIAL THROMBOPLASTIN TIME 23.7 seconds (23.8-35.5)
[2019-12-29] MEDS ORDERED: AZITHROMYCIN 500MG/NS 250 ML 250 ML ONE (00:14)
[2019-12-29 00:25] LABS: ALANINE AMINOTRANSFERASE 18 IU/L (0-55); ALBUMIN 3.6 g/dL (3.5-5.0); ALBUMIN/GLOBULIN RATIO 1.1 (0.8-2.0); ALKALINE PHOSPHATASE 67 IU/L (40-150); ANION GAP 14.1 mmol/L (8-16); CALCIUM 9.3 mg/dL (8.4-10.2); CARBON DIOXIDE 23 mmol/L (22-29); CHLORIDE 104 mmol/L (98-107); CREATINE KINASE 52 IU/L (29-168); CREATININE, SERUM 1.01 mg/dL (0.57-1.11); EST GLOMERULAR FILTRATION RATE 53 ML/MIN (60-); GLUCOSE 150 mg/dL (74-118); POTASSIUM 4.1 mmol/L (3.5-5.1); SODIUM 137 mmol/L (136-145)
[2019-12-29 00:37] LABS: CREATINE KINASE MB < 1.00 ng/mL (0-5.0)
[2019-12-29] MEDS ORDERED: SODIUM CHLORIDE 0.9% 1000ML 1,000 ML ONE (00:40)
[2019-12-29] MEDS ORDERED: SODIUM CHLORIDE 0.9% 1000ML 1,000 ML IV ONE ×2 (00:45→01:15)
--- NOTE | 2019-12-29 01:03 | Diagnostic Imaging Report ---
EXAMINATION: CHEST SINGLE (PORTABLE) INDICATION: ^Y ^fever ^[id number] ^2345 ^Y COMPARISON: 12/28/2019 FINDINGS: AP view TUBES and LINES: None. LUNGS: Lungs are well inflated. Lungs are clear. There is no evidence of pneumonia or pulmonary edema. PLEURA: No pleural effusion or pneumothorax. HEART AND MEDIASTINUM: The cardiomediastinal silhouette is at the upper limit of normal in size. BONES AND SOFT TISSUES: No acute osseous lesion. Heterogeneous increased attenuation of the skeleton is unchanged. Soft tissues are unremarkable. UPPER ABDOMEN: No free air under the diaphragm. IMPRESSION: No acute thoracic radiographic abnormality. No interval change. Signed by: Yo Wilkinson MD on 12/29/2019 1:00 AM
[2019-12-29 01:06] LABS: CLARITY,URINE CLOUDY (CLEAR); COLOR,URINE YELLOW (YELLOW)
[2019-12-29 01:07] LABS: BACTERIA,URINE MANY /HPF; BILIRUBIN,URINE NEGATIVE (NEGATIVE); EPITHELIAL CELLS,URINE MODERATE /LPF; KETONES,URINE NEGATIVE (NEGATIVE); LEUKOCYTE ESTERASE ,URINE TRACE (NEGATIVE); NITRITE,URINE POSITIVE (NEGATIVE); PROTEIN,URINE DIPSTICK 2+ (NEGATIVE); RBC,URINE >50 /HPF (0-5); URINE UROBILINOGEN 0.2 mg/dL (0.2 - 1); WBC,URINE (MAN) >50 /HPF (0-5)
[2019-12-29] MEDS ORDERED: AZITHROMYCIN 500MG/SOD CHL 0.9% 250ML BAG IV SCH (01:15)
--- OUTSIDE RECORDS SUMMARY | 2019-12-29 01:27 | XMS REPORT | Continuity of Care Document ---
Author Author Padmini [place] [employer] [place], ADRIANE HARDY Organization [facility] Address Unknown Phone Unavailable Care Team Providers Care Spanish Teacher Name Role Phone [employer] Unavailable Un available Problems Problem Status Onset Date Classification Date Reported Comments Source J44.9 Active 12/13/2016 [facility] Abdominal pain (finding) Active Problem 12/18/2016 [facility] Clostridium difficile (organism) Active Problem 01/2017 Problem added by Discern Expert. [facility] Diarrhea (finding) Active Problem 12/18/2016 [facility] Osteoporosis (disorder) Active Problem 12/18/2016 [facility] CHRONIC OBSTRUCTIVE PULMONARY DISEASE, U Active [facility] Medications No Data Provided for [...] : 1945; Age: 71 years Female MR: [id number] Study: CT Low Dose Lung Screening 12/15/2016 [...] of dictation. Thank you for choosing the [facility] Lung Screening Program. [id number] 12/15/2016 [facility] Consultation Notes No Data Provided for This Section Discharge Summaries No Data Provided for This Section History and Physicals No Data Provided for This Section Vital Signs No Data Provided for This Section Encounters Location Location Details Encounter Type Encounter Number Reason For Visit Attending Provider ADM Date DC Date Status Source [facility] Outpatient [id number] Fanny Gudino 12/15/2016 12/16/2016 [facility] Procedures No Data Provided for This Section Assessment and Plan No Data Provided for This Section Plan of Care No Data Provided for This Section Social History Social History Date Source Social History TypeResponse 12/16/2016 [facility] Family History No Data Provided for This Section Advance Directives No Data Provided for This Section Functional Status No Data Provided for This Section
[2019-12-29 01:35] LABS: BLOOD UREA NITROGEN 18 mg/dL (7-26); BUN/CREATININE RATIO 18 (6-25)
[2019-12-29] MEDS: ALBUTEROL SULFATE HFA 8GM INHALATION AEROSOL INH SCH ×6 (03:00→23:00)
--- NOTE | 2019-12-29 04:30 | NUR ---
to room to place pt on diamond sizer and sorter prior to transport. pt noted scratching chest and r forearm. pt reports itching p antibiotic. skin at site of scratching noted c redness, no raised areas, rash or hives noted. informed. ordered to dc azithromycin and administer benadryl.
[2019-12-29] MEDS ORDERED: AMBIEN CR6.25 MG PO (04:36)
[2019-12-29] MEDS ORDERED: MULTI-VITAMIN1 EACH PO (04:36)
[2019-12-29] MEDS ORDERED: DIPHENHYDRAMINE HCL INJ 50 MG/ML VIAL ONE (04:39)
[2019-12-29] MEDS ORDERED: DIPHENHYDRAMINE HCL INJ 50 MG/ML VIAL IV ONE (04:45)
--- NOTE | 2019-12-29 04:45 | NUR ---
74 YR OLD FEMALE WHO DEVELOPED FEVER WITH UTI. REPORT RECEIVED FROM ER. 20 G LT AC PIV NS INFUSING AT 100 ML/HR. SITE HEALTHY. PT IS ALERT AND ORIENTED X3. RESPIRATIONS ARE EVEN AND UNLABORED. PT GET SOB WITH EXERTION. NONPRODUCTIVE COUGH. PT HX OF EMPHYSEMA. TELE ON. PT HAS ALLERGY TO IODINE AND AZITHROMYCIN.HX PAGENT'S DISEASE AND SKIN CANCER OF NARES. PT DEVELOPED RASH IN ER SO ZITHROMYCIN ALLERGY.DENIES BURNING PAIN WHEN VOID.ORIENTED TO ROOM AND PMC.CALL LIGHT WITHIN REACH. NO SKIN ISSUES. BED IN LOW POSITION.
[2019-12-29] MEDS ORDERED: fish oil PO (04:49)
[2019-12-29] MEDS ORDERED: ZOLPIDEM TARTRATE 5 MG TAB PO PRN (05:15)
--- NOTE | 2019-12-29 06:32 | History and Physical ---
REASON FOR ADMISSION: Sepsis secondary to pneumonia and UTI. HISTORY OF PRESENT ILLNESS: The patient is a lady, who started having a high fever, was seen in the outside emergency room where she was noticed to have a possible UTI. She was given some antibiotics, but unfortunately after a few hours, the patient started feeling worse and had high fever, so then she presented to the emergency room. She was noticed to have an elevated lactic acid and fever, evidence of possible sepsis secondary to UTI and early pneumonia. Her COVID-19 test was negative. PAST MEDICAL HISTORY: COPD. MEDICATIONS: See OCT. ALLERGIES: AZITHROMYCIN. SOCIAL HISTORY: Nonsmoker, nondrinker, lives at home. FAMILY HISTORY: Hypertension. PHYSICAL EXAMINATION: VITAL SIGNS: Temperature 98.2, pulse 88, blood pressure 113/83, sats 97% on room air. GENERAL: She is no apparent distress, lying in bed. NECK: Supple. CARDIOVASCULAR: Regular rate and rhythm. LUNGS: Decreased breath sounds bilaterally. ABDOMEN: Good bowel sounds. Soft, nontender. EXTREMITIES: No clubbing or cyanosis. NEUROLOGIC: Nonfocal. ASSESSMENT/PLAN: 1. Sepsis secondary to pneumonia and UTI. We will continue with her antibiotics and check culture. The patient appears to be already doing much better. 2. Chronic obstructive pulmonary disease. We will continue to monitor. 3. Anemia. We will continue to monitor. Please see hospital chart for full details. MD AYDE Cabello/ANAND /[id number]
--- NOTE | 2019-12-29 07:00 | NUR ---
BEDSIDE SHIFT REPORT RECEIVED FROM ARTILL[facility] SPECIALIST RN. PT DENIES NEEDS AT THIS TIME.
[2019-12-29] MEDS: CEFEPIME HCL 2 GM/SOD CHL 0.9% 100 ML BAG IV SCH ×3 (07:26→22:05)
[2019-12-29] MEDS: DIPHENHYDRAMINE HCL INJ 50 MG/ML VIAL IV PRN ×2 (08:45→16:13)
[2019-12-29] MEDS: ACETAMINOPHEN 325 MG TAB PO PRN ×2 (12:30→20:27)
[2019-12-29 13:25] LABS: CREATINE KINASE 58 IU/L (29-168)
[2019-12-29] MEDS: MAGNESIUM HYDROXIDE 30 ML UDC PO PRN (17:23)
[2019-12-29 18:06] LABS: CREATINE KINASE 56 IU/L (29-168)
--- NOTE | 2019-12-29 19:25 | NUR ---
Patient visited in room during nursing rounds. Patient alert and oriented x3. Ambulatory in room prn. Pt denies any pain or discomfort at this time. Pt on scheduled IV antibiotics. Call muniz within reach. Will monitor pt closely.
--- NOTE | 2019-12-29 21:00 | NUR ---
Received call from Lab that blood culture for 2 sets have resulted in gram negative rods. Pt already on IV antibiotic treatment.
[2019-12-30] VITALS (8 sets, daily range): BP systolic 114–151; BP diastolic 56–90
[2019-12-30] MEDS: ALBUTEROL SULFATE HFA 8GM INHALATION AEROSOL INH SCH ×6 (04:00→22:30)
[2019-12-30] MEDS: CEFEPIME HCL 2 GM/SOD CHL 0.9% 100 ML BAG IV SCH ×3 (06:00→22:25)
[2019-12-30 06:12] LABS: BASOPHILS % 0.3 % (0.0-1.0); EOSINOPHILS # (AUTO) 0.1 (0.0-0.4); EOSINOPHILS % 0.7 % (0.0-6.0); HEMATOCRIT 33.9 % (34.2-44.1); HEMOGLOBIN 10.5 g/dL (12.0-16.0); LYMPHOCYTES % 10.7 % (18.0-39.1); MEAN CORPUSCULAR HEMOGLOBIN 28.5 pg (28-32); MEAN CORPUSCULAR VOLUME 91.9 fL (81-99); MONOCYTES # (AUTO) 0.7 (0.2-0.8); NEUTROPHILS # (AUTO) 7.4 (2.1-6.9); NEUTROPHILS % 80.4 % (38.7-80.0); PLATELET COUNT 263 x10e3/uL (140-360); RED BLOOD COUNT 3.69 x10e6/uL (3.6-5.1); RED CELL DISTRIBUTION WIDTH 17.2 % (11.7-14.4)
[2019-12-30 06:41] LABS: ALANINE AMINOTRANSFERASE 16 IU/L (0-55); ALBUMIN 2.9 g/dL (3.5-5.0); ALBUMIN/GLOBULIN RATIO 0.9 (0.8-2.0); ALKALINE PHOSPHATASE 61 IU/L (40-150); ANION GAP 14.2 mmol/L (8-16); BLOOD UREA NITROGEN 12 mg/dL (7-26); BUN/CREATININE RATIO 14 (6-25); CALCIUM 9.2 mg/dL (8.4-10.2); CARBON DIOXIDE 21 mmol/L (22-29); CHLORIDE 108 mmol/L (98-107); CREATININE, SERUM 0.86 mg/dL (0.57-1.11); EST GLOMERULAR FILTRATION RATE > 60 ML/MIN (60-); GLUCOSE 126 mg/dL (74-118); POTASSIUM 4.2 mmol/L (3.5-5.1); SODIUM 139 mmol/L (136-145)
--- NOTE | 2019-12-30 07:00 | NUR ---
BEDSIDE SHIFT REPORT RECEIVED FROM SOUR BLEACHING PLEATER RN. PT DENIES NEEDS AT THIS TIME.
[2019-12-30] MEDS ORDERED: SODIUM CHLORIDE 0.9% 50ML 50 ML ONE (07:16)
[2019-12-30] MEDS ORDERED: IOPAMIDOL 370 MG/ML 200 ML INFUS..BTL INJ ONE (07:16)
[2019-12-30] MEDS: ACETAMINOPHEN 325 MG TAB PO PRN ×3 (07:29→20:57)
[2019-12-30] MEDS: DOCUSATE SODIUM 100 MG CAP PO SCH (08:20)
--- NOTE | 2019-12-30 10:27 | Diagnostic Imaging Report ---
EXAM: CT Chest WITH contrast- Pulmonary Embolism Protocol INDICATION: Fever, pneumonia, sepsis, query pulmonary embolism. COMPARISON: Chest radiograph 12/28/2019. TECHNIQUE: Chest was scanned utilizing a multidetector helical scanner from the lung apex through the level of the diaphragm after administration of IV contrast. Thin section reconstructions were obtained with special concentration on the pulmonary arteries. Coronal and sagittal reformations were obtained. Pulmonary embolism protocol was performed. IV CONTRAST: 100 cc of Isovue 370 RADIATION DOSE: Total DLP: 526.5 mGy*cm Dose modulation, iterative reconstruction, and/or weight based adjustment of the mA/kV was utilized to reduce the radiation dose to as low as reasonably achievable. COMPLICATIONS: None FINDINGS: LINES/ TUBES: None. PULMONARY ARTERIES: No filling defect is identified within the pulmonary arteries to the segmental level. The subsegmental pulmonary arteries are not well opacified. Motion artifact limits evaluation in the lower lobes and right upper lobe. Main pulmonary artery measures 3.0 in diameter. LUNGS AND AIRWAYS/PLEURA: Small amount of debris within the lower trachea. The central airways are patent. There is bilateral smooth interlobular septal thickening. There is a small right and trace left pleural effusion with associated lower lung subsegmental atelectasis. There are bilateral patchy groundglass and groundglass and solid nodular opacities, for example a 7 mm groundglass nodule within the left upper lobe on series 3, image 37, a 7 mm groundglass nodule within left lower lobe on image 82, and 9 mm solid nodule opacity within the right upper lobe on image 25 HEART AND MEDIASTINUM: The thyroid gland is normal. No mediastinal or hilar lymphadenopathy. Prominent 1.4 cm right axillary lymph node. Mild cardiomegaly. Mitral annular calcifications. No pericardial effusion. Atherosclerotic calcifications of the aortic arch. Mild wall thickening within the upper esophagus. Small amount of debris within the mid esophagus. UPPER ABDOMEN: Limited contrast-enhanced views of the upper abdomen. Reflux of contrast into the IVC, suggestive of right heart dysfunction. BONES: Diffusely sclerotic appearance of the bones, compatible with reported history of patchy disease. SOFT TISSUES: Unremarkable. IMPRESSION: No evidence of pulmonary embolism. Motion artifact somewhat limits evaluation of the bilateral lower lobes and right upper lobe pulmonary arteries. Enlarged main pulmonary artery, suggestive of pulmonary arterial hypertension. Cardiomegaly, pulmonary interstitial and alveolar edema, small right and trace left pleural effusions. Bilateral groundglass and solid nodular opacities likely represent infectious process. Recommend follow-up chest CT in 3 months. Prominent 1.4 cm right axillary lymph node is nonspecific, but may be reactive. Recommend clinical correlation. Mild circumferential wall thickening within the upper esophagus may represent esophagitis in the appropriate clinical setting. Recommend clinical correlation. Signed by: Dr. Vera Strong MD on 12/30/2019 10:24 AM
[2019-12-30] MEDS: MAGNESIUM HYDROXIDE 30 ML UDC PO PRN (13:46)
[2019-12-30] MEDS: BISACODYL 10 MG SUPP PR PRN (16:43)
--- NOTE | 2019-12-30 19:20 | NUR ---
Patient visited in room during nursing rounds. Patient alert and oriented x3. Ambulatory in room prn. On 2L NC. On scheduled IV antibiotics. Call muniz within reach. Will monitor pt closely.
[2019-12-30] MEDS ORDERED: SODIUM CHLORIDE 0.9% 250ML 250 ML ONE (22:01)
[2019-12-31] VITALS (9 sets, daily range): BP systolic 99–150; BP diastolic 65–85
[2019-12-31] MEDS: ALBUTEROL SULFATE HFA 8GM INHALATION AEROSOL INH SCH ×6 (03:00→23:55)
[2019-12-31] MEDS: CEFEPIME HCL 2 GM/SOD CHL 0.9% 100 ML BAG IV SCH ×3 (06:00→21:43)
[2019-12-31] MEDS: ALBUTEROL SULF 0.083% NEB SOLN 3 ML NEB NEB SCH ×5 (07:00→23:55)
[2019-12-31] MEDS: IPRATROPIUM BROMIDE 0.02% 2.5 ML NEB NEB SCH ×4 (07:00→23:55)
--- NOTE | 2019-12-31 07:00 | NUR ---
received bedside report. pt is alert resting in bed, no s/s of distress. call light within reach and instructed pt to call RN for help
--- NOTE | 2019-12-31 07:58 | Progress Note ---
DATE: SUBJECTIVE: This is a 74-year-old female, who comes in with history of COPD with diagnosis of sepsis. The patient is currently on cefepime 2 g q.8 hours. She is also on albuterol q.4 hours and ipratropium that was discontinued. Currently, the patient is still short of breath, complains of some chest pains on breathing. The patient continues to have tachypnea and is on 4 L of oxygen. OBJECTIVE: VITAL SIGNS: Temperature is 99.9, pulse of 91, respirations of 20, blood pressure is 150/85, pulse oximetry of 94%. She is on 2 L of oxygen. HEENT: Normocephalic and atraumatic. She is using accessory muscles for respiration. CVS: S1 and S2 normal. Regular rate and rhythm. LUNGS: Decreased air entry into all lung romeo, positive for rhonchi bilaterally. EXTREMITIES: No clubbing no cyanosis. Positive for trace edema. LABORATORY VALUES: From yesterday, white count is 9.22, hemoglobin of 10.5, hematocrit of 33.9. Chemistry shows sodium 139, potassium is 4.2, BUN of 12, creatinine 0.86, glucose is 126. Her lactic acid was 2.1 and coags were normal. Serology showed kemp virus not detected by PCR. Influenza was negative. Microbiology; urine cultures are negative and also blood cultures are negative. IMAGING STUDIES: That was done in the ED, chest x-ray showed no acute radiographic abnormalities. Chest CT shows no evidence of pulmonary embolism, enlarged main pulmonary artery suggestive of pulmonary arterial hypertension, cardiomegaly, bilateral ground-glass opacities and small nodular opacities, prominent 1.4 cm lymph node may be reactive and mild circumferential wall thickening of the esophagus. ASSESSMENT: Ms. Anila Odom with, 1. Sepsis. 2. Pneumonia. 3. Hypoxia. 4. Esophagitis. 5. Chronic obstructive pulmonary disease exacerbation. 6. Cardiomegaly and signs suggestive of pulmonary hypertension. Echocardiogram was done, echo showed an EF of 50%, concentric LVH, trace mild TR and trace MR. PLAN: Continue monitoring the patient. We will add azithromycin to the regimen. DVT prophylaxis will be done by both SCDs and heparin. Continue monitoring the patient's hypoxia and albuterol and Atrovent treatments every 6 hours. The patient's blood pressures have been rising up with concentric LVH. We will go ahead and add some losartan to the regimen. Further recommendation per clinical course. We will continue to monitor the patient. The patient will stay in the hospital for continuum of fever continuum of symptoms of pneumonia and hypoxia. MD TEZ MirandaJ/MODL /[id number]
[2019-12-31] MEDS: DOCUSATE SODIUM 100 MG CAP PO SCH (08:42)
[2019-12-31] MEDS: LOSARTAN POTASSIUM 100 MG TAB PO SCH (08:42)
[2019-12-31] MEDS: PANTOPRAZOLE SOD 40 MG TABEC PO SCH (08:42)
[2019-12-31] MEDS: SODIUM CHLORIDE 0.9% 1000ML 1,000 ML IV SCH (08:47)
--- NOTE | 2019-12-31 08:56 | NUR ---
placed SCDs on both legs
--- NOTE | 2019-12-31 10:13 | NUR ---
Notified Dr. Harley of + blood cultures. pt is on cefepime which is on the sensitivity list
[2019-12-31] MEDS: BISACODYL 10 MG SUPP PR PRN (15:20)
[2019-12-31] MEDS: ENOXAPARIN SOD INJ 40 MG/0.4 ML SYR SC SCH (17:15)
[2019-12-31] MEDS: MAGNESIUM HYDROXIDE 30 ML UDC PO PRN (17:15)
[2020-01-01] VITALS (8 sets, daily range): BP systolic 109–142; BP diastolic 70–89
[2020-01-01] MEDS: ALBUTEROL SULFATE HFA 8GM INHALATION AEROSOL INH SCH ×6 (03:30→23:00)
[2020-01-01] MEDS: ALBUTEROL SULF 0.083% NEB SOLN 3 ML NEB NEB SCH ×6 (03:30→23:55)
[2020-01-01 05:24] LABS: BASOPHILS % 0.6 % (0.0-1.0); EOSINOPHILS # (AUTO) 0.1 (0.0-0.4); EOSINOPHILS % 1.4 % (0.0-6.0); HEMATOCRIT 29.2 % (34.2-44.1); HEMOGLOBIN 9.3 g/dL (12.0-16.0); LYMPHOCYTES # (AUTO) 0.8 (1.0-3.2); MEAN CORPUSCULAR HEMOGLOBIN 28.6 pg (28-32); MEAN CORPUSCULAR HGB CONC 31.8 g/dL (31-35); MEAN CORPUSCULAR VOLUME 89.8 fL (81-99); MONOCYTES # (AUTO) 0.6 (0.2-0.8); MONOCYTES % 8.9 % (4.4-11.3); NEUTROPHILS # (AUTO) 4.8 (2.1-6.9); NEUTROPHILS % 74.5 % (38.7-80.0); PLATELET COUNT 246 x10e3/uL (140-360); RED BLOOD COUNT 3.25 x10e6/uL (3.6-5.1); RED CELL DISTRIBUTION WIDTH 16.3 % (11.7-14.4)
[2020-01-01 05:55] LABS: ANION GAP 12.9 mmol/L (8-16); BLOOD UREA NITROGEN 10 mg/dL (7-26); BUN/CREATININE RATIO 14 (6-25); CALCIUM 8.8 mg/dL (8.4-10.2); CARBON DIOXIDE 25 mmol/L (22-29); CHLORIDE 104 mmol/L (98-107); CREATININE, SERUM 0.69 mg/dL (0.57-1.11); EST GLOMERULAR FILTRATION RATE > 60 ML/MIN (60-); GLUCOSE 123 mg/dL (74-118); POTASSIUM 3.9 mmol/L (3.5-5.1); SODIUM 138 mmol/L (136-145)
[2020-01-01] MEDS: CEFEPIME HCL 2 GM/SOD CHL 0.9% 100 ML BAG IV SCH ×3 (06:00→21:57)
[2020-01-01] MEDS: SODIUM CHLORIDE 0.9% 1000ML 1,000 ML IV SCH (06:00)
[2020-01-01] MEDS: IPRATROPIUM BROMIDE 0.02% 2.5 ML NEB NEB SCH ×3 (06:38→23:55)
--- NOTE | 2020-01-01 08:34 | Progress Note ---
DATE: SUBJECTIVE: A 74-year-old female patient came in with a history of sepsis, pneumonia and urinary tract infection. Currently, the patient is feeling better, is on Maxipime 2 g q.12 hours, was also getting Lovenox for DVT prophylaxis and also GI prophylaxis with pantoprazole. Medications are reviewed and noted. PHYSICAL EXAMINATION: GENERAL: The patient is alert and oriented x3, feeling a bit better, but she is still using accessory muscles for respiration. VITAL SIGNS: Temperature is 98.3, pulse of 88, and respirations of 18, blood pressure is 119/70, pulse oximetry of 96% on 3 L of oxygen. HEENT: Normocephalic, atraumatic. Pupils are reactive. CVS: S1 and S2 distant. ABDOMEN: Nontender, nondistended. LUNGS: Decreased air entry. Positive for rhonchi bilaterally. EXTREMITIES: No clubbing, no cyanosis, and no edema. LABORATORY VALUES: White count 6.50, hemoglobin of 9.3, hematocrit of 29.2, indices are normal. RDW of 16.3. Otherwise, chemistries sodium of 138, potassium 3.9, BUN of 10, creatinine 0.69, glucose 123, magnesium is 2.1. Serology; kemp virus not detected and influenza negative. Microbiology; blood cultures no growth in 72 hours. Urine culture is also less than a 100,000 colonies. ASSESSMENT: Ms. Anila Odom with, 1. Sepsis. 2. Pneumonia. 3. Hypoxia. 4. Esophagitis. 5. Chronic obstructive pulmonary disorder. 6. Cardiomegaly with normal EF, preserved ejection fraction. PLAN: Continue with fluid resuscitation. Continue with Maxipime at this time. Continue monitoring her hypoxia. Physical therapy will be instituted today and if the patient is improving, possible discharge tomorrow depending on progression, further recommendation and clinical course. We will also do a home oxygen monitoring if necessary. MD JENNIFER Miranda/RAMIROL /[id number]
[2020-01-01] MEDS: PANTOPRAZOLE SOD 40 MG TABEC PO SCH (08:38)
[2020-01-01] MEDS: DOCUSATE SODIUM 100 MG CAP PO SCH (08:38)
[2020-01-01] MEDS: LOSARTAN POTASSIUM 100 MG TAB PO SCH (08:38)
[2020-01-01] MEDS: ACETYLCYSTEINE 20% INHAL SOLN 30 ML VIAL PO SCH ×2 (09:00→23:55)
--- NOTE | 2020-01-01 10:12 | Diagnostic Imaging Report ---
TECHNIQUE: Frontal and lateral views of the chest. INDICATION: ^pneumonia ^[id number] ^[id number] COMPARISON: Chest CT 12/30/2019 IMPRESSION: Lines and hardware: None. Heart and mediastinum: Stable. Lungs and pleura: Reticulonodular pattern throughout the lungs with patchy bibasilar airspace opacities and small pleural effusions. These findings are better appreciated on the most recent chest CT. No pneumothorax. Soft tissues and bones: No acute bony abnormality. Signed by: Eyda Galvan MD on 01/01/2020 10:09 AM
--- NOTE | 2020-01-01 15:18 | NUR ---
home O2 eval was done, pt qualifies for home oxygen. notified Hannah Erickson CM
[2020-01-01] MEDS: ENOXAPARIN SOD INJ 40 MG/0.4 ML SYR SC SCH (17:59)
--- NOTE | 2020-01-01 19:10 | NUR ---
Bedside nursing rounds completed with morning. Pt lying in bed, HOB 30 degrees. denies pain at this time. Call light within reach. Bed low and locked.
[2020-01-01] MEDS: ACETAMINOPHEN 325 MG TAB PO PRN (21:20)
[2020-01-01] MEDS: DIPHENHYDRAMINE HCL INJ 50 MG/ML VIAL IV PRN (22:44)
[2020-01-02] MEDS: ALBUTEROL SULFATE HFA 8GM INHALATION AEROSOL INH SCH ×2 (03:00→06:53)
[2020-01-02] MEDS: ALBUTEROL SULF 0.083% NEB SOLN 3 ML NEB NEB SCH ×2 (03:00→06:40)
[2020-01-02 04:58] VITALS: BP 121/94
[2020-01-02] MEDS: CEFEPIME HCL 2 GM/SOD CHL 0.9% 100 ML BAG IV SCH (05:47)
[2020-01-02] MEDS: SODIUM CHLORIDE 0.9% 1000ML 1,000 ML IV SCH (05:47)
--- NOTE | 2020-01-02 06:31 | NUR ---
Pt resting quietly in bed with eyes closed. No acute distress noted.
[2020-01-02] MEDS: IPRATROPIUM BROMIDE 0.02% 2.5 ML NEB NEB SCH (06:40)
[2020-01-02] MEDS: ACETYLCYSTEINE 20% INHAL SOLN 30 ML VIAL PO SCH (06:54)
--- NOTE | 2020-01-02 07:00 | NUR ---
Received bedside shift report from off going nurse. Patient in stable condition, no s/s of distress noted. no pain voiced. Telemetry applied and working. Bed in lowest position and working. Call light within reach.
[2020-01-02] MEDS ORDERED: FUROSEMIDE 20 MG TAB PO ONE (07:55)
[2020-01-02 08:28] VITALS: BP 138/79
[2020-01-02 08:51] VITALS: BP 138/79
[2020-01-02] MEDS: DOCUSATE SODIUM 100 MG CAP PO SCH (08:58)
[2020-01-02] MEDS: PANTOPRAZOLE SOD 40 MG TABEC PO SCH (08:58)
[2020-01-02] MEDS: LOSARTAN POTASSIUM 100 MG TAB PO SCH (08:58)
--- NOTE | 2020-01-02 09:48 | Progress Note ---
DATE: SUBJECTIVE: The patient is a 74-year-old female, who came into the hospital with pneumonic symptoms, sepsis. The patient is currently feeling better. No chest pains. No shortness of breath. The patient is walking and did walk with therapy yesterday. OBJECTIVE: VITAL SIGNS: Temperature is afebrile, pulse of 92, respirations of 18, blood pressure is 121/94, pulse oximetry of 95% on 2 L of oxygen. HEENT: Normocephalic, atraumatic. Pupils are reactive. CVS: S1 and S2 normal. Regular rate and rhythm. ABDOMEN: Nontender, nondistended. LUNGS: Decreased air entry into all lung bases. The patient has baseline emphysema. Rhonchi are much better. EXTREMITIES: No clubbing, no cyanosis, no edema. LABORATORY VALUES: Yesterday's white count was 6.5, hemoglobin of 9.3, hematocrit of 29.2. Chemistry shows sodium 138, potassium 3.9, BUN of 10, creatinine 0.69 and glucose is 123. Serology again coronavirus is nondetected and influenza negative. DIAGNOSTIC STUDIES: Repeat chest x-ray done showed no reticulonodular pattern throughout the lung with patchy bibasilar airspace opacities and small pleural effusions. These findings pneumothorax or soft tissue problems. ASSESSMENT: Ms. Anila Odom with: 1. Sepsis. 2. Pneumonia. 3. Hypoxia. 4. Esophagitis. 5. Chronic obstructive pulmonary disorder lean towards emphysema. 6. Cardiomegaly with preserved ejection fraction. PLAN: Okay to discharge home today. The patient will be switched to p.o. antibiotics and will be seen in the clinic about a week's time. Further recommendation per clinical course. Also, the patient will be sent home on some albuterol and Atrovent treatments for a nebulizer. Oxygen will be monitored and home O2 will also be monitored if not necessary. The patient can be discharged without oxygen, seen in the clinic about 2 weeks, strict ER warnings given to the patient and we will continue to monitor the patient as an outpatient. MD JENNIFER Miranda/ANAND /[id number]
[2020-01-02] MEDS ORDERED: duoneb INH (10:29)
--- NOTE | 2020-01-02 11:02 | NUR ---
Patient discharged home with home oxygen. Patient off the unit @ 1101 via wheelchair accompanied by RN to the lobby. Patient in stable condition, no s/s of distress noted. No Pain voiced. IV access removed with tip intact. All personal items taken with patient. Discharge teaching and instructions given to the patient. Verbalized understanding by the patient. Prescriptions and packet given to the patient upon discharge.
--- NOTE | 2020-01-02 12:45 | NUR ---
SATS ON ROOM AIR AMBULATING 86% ORDERS FOR HOME 02 CHOICE LETTER SIGNED FOR [facility] PH: [phone] CHOICE LETTER ON CHART AND COPY TO PT ALONG WITH MY BUSINESS CARD IMM EXPLAINED TO PT, SIGNED BY PT AND PLACED IN CHART COPY OF IMM GIVEN TO PT IN CARE TRANSITIONS FOLDER PORTABLE 02 DELIVERED TO PT'S ROOM BY ABHIJIT SANDHU AT [facility] PT TO CALL MARKEL WHEN SHE GETS HOME FOR [facility] DELIVERY
== END 2020-01-02 11:01 | disposition home or self-care (01) | DRG 871 ==
LOC: ER 23:18 → ERHOLD 12-29 01:25 → MED/SURG2 12-29 05:20
PROVIDERS: ADMIT Family Medicine; ATTEND Family Medicine
DX: A41.9 Sepsis, unspecified organism (principal); J18.9 Pneumonia, unspecified organism; N39.0 Urinary tract infection, site not specified; D64.9 Anemia, unspecified; Z11.59 Encounter for screening for other viral diseases; R09.02 Hypoxemia; K20.9 Esophagitis, unspecified; J43.9 Emphysema, unspecified; I51.7 Cardiomegaly
CPT/HCPCS: 36415; 71045; 71046; 71260; 80048; 80053; 81001; 82550; 82553; 83605; 83735; 84484; 85025; 85610; 85730; 87040; 87086; 87400; 87635; 93005; 93306; 94640; 94664; 96361; 96374; 97139; 99285; J0456; J1200; J1650; J2405; J7030; J7050; Q9967

== ENCOUNTER 2020-12-27 04:09 | Inpatient (IN) | payer MEDICARE, OTHER ==
[~2020-12-27] VITALS: Ht 152.4 cm; Wt 66.7 kg
[~2020-12-27 04:09] MED LIST changes: +AMBIEN CR6.25 MG PO; +MULTI-VITAMIN1 EACH PO; +duoneb INH; +fish oil PO
[2020-12-27 04:58] LABS: BASOPHILS # (AUTO) 0.1 (0.0-0.1); BASOPHILS % 1.1 % (0.0-1.0); EOSINOPHILS # (AUTO) 0.1 (0.0-0.4); EOSINOPHILS % 1.5 % (0.0-6.0); HEMATOCRIT 33.5 % (34.2-44.1); HEMOGLOBIN 11.4 g/dL (12.0-16.0); LYMPHOCYTES % 22.2 % (18.0-39.1); MEAN CORPUSCULAR HEMOGLOBIN 32.6 pg (28-32); MEAN CORPUSCULAR VOLUME 95.7 fL (81-99); MONOCYTES # (AUTO) 0.3 (0.2-0.8); MONOCYTES % 5.7 % (4.4-11.3); NEUTROPHILS # (AUTO) 3.2 (2.1-6.9); NEUTROPHILS % 68.6 % (38.7-80.0); PLATELET COUNT 318 x10e3/uL (140-360); RED CELL DISTRIBUTION WIDTH 13.6 % (11.7-14.4)
[2020-12-27 05:00] LABS: CLARITY,URINE CLEAR (CLEAR); COLOR,URINE YELLOW (YELLOW); KETONES,URINE NEGATIVE (NEGATIVE); LEUKOCYTE ESTERASE ,URINE NEGATIVE (NEGATIVE); NITRITE,URINE NEGATIVE (NEGATIVE); PROTEIN,URINE DIPSTICK 1+ (NEGATIVE); URINE UROBILINOGEN 0.2 mg/dL (0.2 - 1)
[2020-12-27 05:02] LABS: INR 0.88; PROTHROMBIN TIME 12.5 seconds (11.9-14.5)
[2020-12-27 05:03] LABS: PARTIAL THROMBOPLASTIN TIME 25.2 seconds (23.8-35.5)
[2020-12-27 05:07] LABS: BACTERIA,URINE FEW /HPF; EPITHELIAL CELLS,URINE MODERATE /LPF; WBC,URINE (MAN) 0-5 /HPF (0-5); YEAST,URINE FEW
[2020-12-27 05:09] LABS: ALBUMIN 3.3 g/dL (3.5-5.0); ANION GAP 16.2 mmol/L (8-16); CALCIUM 9.8 mg/dL (8.4-10.2); CREATININE, SERUM 0.96 mg/dL (0.57-1.11); POTASSIUM 4.2 mmol/L (3.5-5.1)
[2020-12-27] MEDS ORDERED: ACETAMINOPHEN 325 MG TAB PO ONE (05:15)
[2020-12-27 05:16] LABS: CREATINE KINASE MB 0.9 ng/mL (0-5.0)
[2020-12-27 05:23] LABS: B-TYPE NATRIURETIC PEPTIDE2 133.5 pg/mL (0-100)
[2020-12-27] MEDS ORDERED: SODIUM CHLORIDE 0.9% 1000ML 1,000 ML IV STA (05:54)
[2020-12-27 06:12] LABS: STREPTOCOCCUS GRP A ANTIGEN NEGATIVE (NEGATIVE)
[2020-12-27 06:20] LABS: INFLUENZAE A&B ANTIGEN (RAPID) NEGATIVE (NEGATIVE)
[2020-12-27] MEDS ORDERED: IOPAMIDOL 370 MG/ML 200 ML INFUS..BTL INJ ONE (07:21)
[2020-12-27] MEDS ORDERED: SODIUM CHLORIDE 0.9% 50ML 50 ML ONE (07:21)
[2020-12-27 09:06] LABS: BAND NEUTROPHILS % (MANUAL) 1 %; LYMPHOCYTES % (MANUAL) 20 % (19-48); MONOCYTES % (MANUAL) 4 % (3.4-9.0); NEUTROPHILS % (MANUAL) 75 % (40-74)
[2020-12-27] MEDS ORDERED: AZITHROMYCIN 500MG/NS 250 ML 250 ML IV SCH (09:15)
[2020-12-27] MEDS ORDERED: MORPHINE SULFATE INJ 2 MG/ML SYR IV PRN (09:15)
[2020-12-27] MEDS ORDERED: NITROGLYCERIN 0.4 MG SUBL SL PRN (09:15)
[2020-12-27] MEDS ORDERED: ALBUTEROL/IPRATROPIUM 3 ML NEB NEB PRN (09:15)
[2020-12-27] MEDS ORDERED: ACETAMINOPHEN 325 MG TAB PO PRN (09:15)
[2020-12-27 10:35] LABS: AMPHETAMINES SCREEN,URINE NEGATIVE (NEGATIVE); BENZODIAZEPINES SCREEN,URINE NEGATIVE (NEGATIVE); PHENCYCLIDINE SCREEN,URINE NEGATIVE (NEGATIVE)
[2020-12-27] MEDS: CEFTRIAXONE SOD 1 GM VIAL IV SCH (12:00)
[2020-12-27] MEDS: LEVOFLOXACIN 500MG/D5W 100ML 100 ML IV SCH (12:16)
[2020-12-27] MEDS: FAMOTIDINE 20 MG/2 ML VIAL IV SCH ×2 (12:16→20:26)
[2020-12-27] MEDS: ONDANSETRON HCL INJ 2MG/ML 2ML 2 MG/ML VIAL IV PRN ×2 (12:35→17:30)
[2020-12-27 15:56] VITALS: BP 124/62
[2020-12-27 16:02] VITALS: BP 124/62
[2020-12-27 17:12] VITALS: BP 124/62
[2020-12-27 19:53] VITALS: BP 124/62
[2020-12-27 20:00] VITALS: BP 103/57
[2020-12-27] MEDS ORDERED: BUPROPION HCL150 M2 PO (20:33)
[2020-12-27] MEDS ORDERED: ZOLPIDEM TARTRATE 5 MG TAB PO SCH (21:00)
[2020-12-27] MEDS ORDERED: ZOLPIDEM TARTRATE PO SCH (21:00)
[2020-12-27] MEDS: ZOLPIDEM TARTRATE 5 MG TAB PO SCH (22:00)
[2020-12-28] VITALS (7 sets, daily range): BP systolic 92–135; BP diastolic 45–80
[2020-12-28 06:37] LABS: BASOPHILS % 1.1 % (0.0-1.0); EOSINOPHILS # (AUTO) 0.1 (0.0-0.4); EOSINOPHILS % 2.5 % (0.0-6.0); HEMATOCRIT 30.2 % (34.2-44.1); LYMPHOCYTES # (AUTO) 1.1 (1.0-3.2); LYMPHOCYTES % 31.1 % (18.0-39.1); MEAN CORPUSCULAR HEMOGLOBIN 32.2 pg (28-32); MEAN CORPUSCULAR HGB CONC 33.1 g/dL (31-35); MEAN CORPUSCULAR VOLUME 97.1 fL (81-99); MONOCYTES # (AUTO) 0.3 (0.2-0.8); MONOCYTES % 8.7 % (4.4-11.3); NEUTROPHILS # (AUTO) 2.1 (2.1-6.9); NEUTROPHILS % 56.3 % (38.7-80.0); PLATELET COUNT 289 x10e3/uL (140-360); RED BLOOD COUNT 3.11 x10e6/uL (3.6-5.1); RED CELL DISTRIBUTION WIDTH 13.8 % (11.7-14.4)
[2020-12-28 07:02] LABS: ALANINE AMINOTRANSFERASE 13 IU/L (0-55); ALBUMIN 2.9 g/dL (3.5-5.0); ALKALINE PHOSPHATASE 50 IU/L (40-150); ANION GAP 13.8 mmol/L (8-16); BLOOD UREA NITROGEN 10 mg/dL (7-26); BUN/CREATININE RATIO 13 (6-25); CALCIUM 8.9 mg/dL (8.4-10.2); CARBON DIOXIDE 22 mmol/L (22-29); CHLORIDE 105 mmol/L (98-107); CHOL/HDL RATIO 2.9 (3.0-3.6); CHOLESTEROL 192 MD/DL (0-199); CREATININE, SERUM 0.79 mg/dL (0.57-1.11); EST GLOMERULAR FILTRATION RATE > 60 ML/MIN (60-); GLUCOSE 96 mg/dL (74-118); HDL CHOLESTEROL 67 MG/DL (40-60); LDL CHOLESTEROL 105 MG/DL (60-130); POTASSIUM 3.8 mmol/L (3.5-5.1); SODIUM 137 mmol/L (136-145); TRIGLYCERIDES 99 MG/DL (0-149)
[2020-12-28 07:56] LABS: CREATINE KINASE MB 4.5 ng/mL (0-5.0)
[2020-12-28] MEDS ORDERED: SODIUM CHLORIDE 0.9% 50ML 50 ML ONE ×2 (08:30→10:26)
[2020-12-28 08:56] LABS: BAND NEUTROPHILS % (MANUAL) 3 %; EOSINOPHILS % (MANUAL) 2 % (0-7); LYMPHOCYTES % (MANUAL) 29 % (19-48); MONOCYTES % (MANUAL) 6 % (3.4-9.0); NEUTROPHILS % (MANUAL) 60 % (40-74)
[2020-12-28] MEDS: FAMOTIDINE 20 MG/2 ML VIAL IV SCH ×2 (10:14→21:08)
[2020-12-28] MEDS: CEFTRIAXONE SOD 1 GM VIAL IV SCH (10:14)
[2020-12-28] MEDS ORDERED: ASPIRIN 325 MG TAB PO NR (11:15)
[2020-12-28] MEDS: LEVOFLOXACIN 500MG/D5W 100ML 100 ML IV SCH (11:50)
[2020-12-28 13:37] LABS: CREATINE KINASE MB 3.7 ng/mL (0-5.0)
[2020-12-28] MEDS ORDERED: CLOPIDOGREL BISULFATE 75 MG TAB PO NR (16:30)
[2020-12-28] MEDS ORDERED: HEPARIN 25,000 UNIT 600 UNIT in DEXTROSE 5% 250ML 250 ML IV SCH (16:30)
[2020-12-28] MEDS ORDERED: ATORVASTATIN 20 MG TAB PO SCH (21:00)
[2020-12-28] MEDS: ZOLPIDEM TARTRATE 5 MG TAB PO SCH (21:07)
[2020-12-28] MEDS: METOPROLOL TARTRATE 25 MG TAB PO SCH (21:07)
[2020-12-29] VITALS: BP 131/58
[2020-12-29 04:00] VITALS: BP 105/62
[2020-12-29 07:48] VITALS: BP 121/69
[2020-12-29 07:53] VITALS: BP 121/69
[2020-12-29] MEDS ORDERED: SODIUM CHLORIDE 0.9% 50ML 50 ML ONE ×2 (08:36→10:42)
[2020-12-29] MEDS: CEFTRIAXONE SOD 1 GM VIAL IV SCH (08:51)
[2020-12-29] MEDS: FAMOTIDINE 20 MG/2 ML VIAL IV SCH (08:51)
[2020-12-29] MEDS: METOPROLOL TARTRATE 25 MG TAB PO SCH (08:51)
[2020-12-29] MEDS ORDERED: ASPIRIN 81 MG CHEW TAB PO SCH (09:00)
[2020-12-29] MEDS ORDERED: CLOPIDOGREL BISULFATE 75 MG TAB PO SCH (09:00)
[2020-12-29] MEDS ORDERED: ASPIRIN 325 MG TAB PO SCH (09:00)
[2020-12-29] MEDS: LEVOFLOXACIN 500MG/D5W 100ML 100 ML IV SCH (10:51)
[2020-12-29 11:13] VITALS: BP 117/61
[2020-12-29] MEDS ORDERED: LIDOCAINE HCL 2% LOCAL 20 ML VIAL ONE (11:43)
[2020-12-29] MEDS ORDERED: FENTANYL CITRATE/PF 100MCG/2 ML INJ ONE (11:43)
[2020-12-29] MEDS ORDERED: IOPAMIDOL 370 MG/ML 200 ML INFUS..BTL INJ ONE (11:43)
[2020-12-29] MEDS ORDERED: SODIUM CHLORIDE 0.9% 1000ML 1,000 ML ONE (11:43)
[2020-12-29] MEDS ORDERED: HEPARIN SOD/SOD CHLORIDE 2,000 ML ONE (11:43)
[2020-12-29] MEDS ORDERED: MIDAZOLAM HCL 2 MG/2 ML VIAL ONE (11:43)
[2020-12-29 16:00] VITALS: BP 113/54
== END 2020-12-29 18:36 | disposition home or self-care (01) | DRG 281 ==
LOC: ER 04:21 → ERHOLD 05:16 → MED/SURG2 15:00
PROVIDERS: ADMIT Family Medicine; ATTEND Family Medicine
PROC: 4A023N7 Measurement of Cardiac Sampling and Pressure, Left Heart, Percutaneous Approach (ICD-10-PCS; principal; 2020-12-29)
PROC: B2111ZZ Fluoroscopy of Multiple Coronary Arteries using Low Osmolar Contrast (ICD-10-PCS; 2020-12-29)
PROC: B2151ZZ Fluoroscopy of Left Heart using Low Osmolar Contrast (ICD-10-PCS; 2020-12-29)
DX: I21.4 Non-ST elevation (NSTEMI) myocardial infarction (principal); J44.0 Chronic obstructive pulmonary disease with (acute) lower respiratory infection; C79.51 Secondary malignant neoplasm of bone; G93.40 Encephalopathy, unspecified; K21.9 Gastro-esophageal reflux disease without esophagitis; Z87.440 Personal history of urinary (tract) infections; Z85.828 Personal history of other malignant neoplasm of skin; Z87.891 Personal history of nicotine dependence; Z88.1 Allergy status to other antibiotic agents; C50.919 Malignant neoplasm of unspecified site of unspecified female breast
CPT/HCPCS: 36415; 70450; 71045; 71260; 80053; 80061; 80307; 81001; 82140; 82550; 82553; 83518; 83605; 83735; 83880; 84443; 84484; 85025; 85379; 85610; 85730; 87040; 87070; 87086; 87400; 93005; 93306; 93458; 96360; 96361; 99152; 99153; 99284; C1760; C1769; J0696; J1956; J2001; J2250; J2405; J3010; J7030; Q9967; U0002

== ENCOUNTER 2021-05-16 23:23 | Emergency (ER) | payer MEDICARE, OTHER ==
[~2021-05-16] VITALS: Ht 152.4 cm; Wt 61.2 kg
[~2021-05-16 23:23] MED LIST changes: +BUPROPION HCL150 M2 PO
[2021-05-21] MEDS ORDERED: VERZENIO150 MG PO (09:09)
[2021-05-21] MEDS ORDERED: FEMARA2.5 MG PO (09:09)
[2021-05-21] MEDS ORDERED: DILTIAZEM 24HR120 M1 PO (09:09)
[2021-05-21] MEDS ORDERED: BREO ELLIPTA 11 EACH INH (09:09)
[2021-05-21] MEDS ORDERED: ATORVASTATIN CA10 MG PO (09:09)
[2021-05-21] MEDS ORDERED: ELIQUIS5 MG PO (09:09)
== END 2021-05-17 01:56 | disposition home or self-care (01) ==
LOC: FSED 23:56
DX: R07.9 Chest pain, unspecified (principal); M54.9 Dorsalgia, unspecified; G89.29 Other chronic pain; R94.31 Abnormal electrocardiogram [ECG] [EKG]; Z82.49 Family history of ischemic heart disease and other diseases of the circulatory system
CPT/HCPCS: 71046; 80053; 82553; 84484; 85025; 93005; 99284

== ENCOUNTER → 2021-05-22 | Day surgery (SDC) | payer MEDICARE, OTHER ==
[2021-05-21 11:16] LABS: BASOPHILS # (AUTO) 0.1 (0.0-0.1); BASOPHILS % 1.3 % (0.0-1.0); EOSINOPHILS # (AUTO) 0.1 (0.0-0.4); EOSINOPHILS % 2.9 % (0.0-6.0); HEMATOCRIT 25.9 % (34.2-44.1); HEMOGLOBIN 8.1 g/dL (12.0-16.0); LYMPHOCYTES % 25.5 % (18.0-39.1); MEAN CORPUSCULAR HEMOGLOBIN 32.8 pg (28-32); MEAN CORPUSCULAR HGB CONC 31.3 g/dL (31-35); MEAN CORPUSCULAR VOLUME 104.9 fL (81-99); MONOCYTES # (AUTO) 0.4 (0.2-0.8); MONOCYTES % 11.2 % (4.4-11.3); NEUTROPHILS # (AUTO) 2.2 (2.1-6.9); NEUTROPHILS % 58.3 % (38.7-80.0); PLATELET COUNT 272 x10e3/uL (140-360); RED BLOOD COUNT 2.47 x10e6/uL (3.6-5.1); RED CELL DISTRIBUTION WIDTH 14.5 % (11.7-14.4)
[~2021-05-22] MED LIST changes: +ATORVASTATIN CA10 MG PO; +BREO ELLIPTA 11 EACH INH; +DILTIAZEM 24HR120 M1 PO; +ELIQUIS5 MG PO; +FEMARA2.5 MG PO; +LIDOCAINE HCL 2% LOCAL INJ 5 ML SDV VIAL INJ ONE; +POVIDONE IODINE 0.05% 0.05 % ML PO ONE; +PROPOFOL IV EMULSION 10 MG/ML 50 ML VIAL IV ONE; +VERZENIO150 MG PO
[2021-05-22 09:00] VITALS: BP 134/66
== END | disposition home or self-care (01) ==
LOC: OR 05:44
PROVIDERS: ATTEND Internal Medicine Gastroenterology
DX: K29.70 Gastritis, unspecified, without bleeding (principal); K26.9 Duodenal ulcer, unspecified as acute or chronic, without hemorrhage or perforation; K44.9 Diaphragmatic hernia without obstruction or gangrene; K22.89 Other specified disease of esophagus; C79.51 Secondary malignant neoplasm of bone; J44.9 Chronic obstructive pulmonary disease, unspecified; I48.91 Unspecified atrial fibrillation; R07.9 Chest pain, unspecified; Z88.1 Allergy status to other antibiotic agents; Z01.812 Encounter for preprocedural laboratory examination; Z20.822 Contact with and (suspected) exposure to COVID-19; Z79.02 Long term (current) use of antithrombotics/antiplatelets; Z68.25 Body mass index [BMI] 25.0-25.9, adult; Z85.3 Personal history of malignant neoplasm of breast; Z87.01 Personal history of pneumonia (recurrent); Z87.891 Personal history of nicotine dependence
CPT/HCPCS: 36415; 43239; 85025; 87106; 87205; 88305; 88312; C9113; U0002; J2001

== ENCOUNTER 2022-11-06 16:30 | Inpatient (IN) | payer MEDICARE, OTHER ==
[~2022-11-06] VITALS: Ht 152.4 cm; Wt 61.2 kg
[~2022-11-06 16:30] MED LIST changes: -LIDOCAINE HCL 2% LOCAL INJ 5 ML SDV VIAL INJ ONE; -POVIDONE IODINE 0.05% 0.05 % ML PO ONE; -PROPOFOL IV EMULSION 10 MG/ML 50 ML VIAL IV ONE
[2022-11-06] MEDS ORDERED: SODIUM CHLORIDE FLUSH 10 ML SYR IV PRN (16:45)
[2022-11-06] MEDS ORDERED: ASPIRIN 81 MG CHEW TAB PO ONE ×2 (16:45→18:15)
[2022-11-06 17:05] LABS: BASOPHILS % 0.7 % (0.0-1.0); EOSINOPHILS # (AUTO) 0.1 (0.0-0.4); EOSINOPHILS % 1.3 % (0.0-6.0); HEMATOCRIT 32.7 % (34.2-44.1); HEMOGLOBIN 10.2 g/dL (12.0-16.0); MEAN CORPUSCULAR HEMOGLOBIN 30.5 pg (28-32); MEAN CORPUSCULAR HGB CONC 31.2 g/dL (31-35); MEAN CORPUSCULAR VOLUME 97.9 fL (81-99); MONOCYTES # (AUTO) 0.1 (0.2-0.8); MONOCYTES % 1.1 % (4.4-11.3); NEUTROPHILS # (AUTO) 3.3 (2.1-6.9); NEUTROPHILS % 73.5 % (38.7-80.0); PLATELET COUNT 378 x10e3/uL (140-360); RED BLOOD COUNT 3.34 x10e6/uL (3.6-5.1); RED CELL DISTRIBUTION WIDTH 14.1 % (11.7-14.4)
[2022-11-06 17:27] LABS: ALBUMIN 3.3 g/dL (3.5-5.0); ALBUMIN/GLOBULIN RATIO 0.9 (0.8-2.0); CALCIUM 10.7 mg/dL (8.4-10.2); CREATININE, SERUM 1.19 mg/dL (0.57-1.11)
[2022-11-06] MEDS ORDERED: NITROGLYCERIN 0.4 MG SUBL SL ONE (18:00)
[2022-11-06] MEDS ORDERED: ONDANSETRON HCL INJ 2MG/ML 2ML 2 MG/ML VIAL IV STA (18:10)
[2022-11-06] MEDS ORDERED: Morphine 4mg INJECTION 4 MG/ML INJ IV ONE (18:15)
[2022-11-06] MEDS ORDERED: SODIUM CHLORIDE FLUSH 10 ML SYR INJ PRN (18:15)
[2022-11-06 19:30] VITALS: BP 120/60
[2022-11-06 19:45] LABS: CREATINE KINASE MB 2.5 ng/mL (0-5.0)
[2022-11-06] MEDS ORDERED: LOMOTIL TABLET1 EACH PO (23:30)
[2022-11-06] MEDS ORDERED: HALDOL1 MG PO (23:31)
[2022-11-06] MEDS ORDERED: MS CONTIN15 MG PO (23:36)
[2022-11-07] VITALS (7 sets, daily range): BP systolic 91–117; BP diastolic 43–93
[2022-11-07 05:22] LABS: BASOPHILS # (AUTO) 0.1 (0.0-0.1); BASOPHILS % 0.8 % (0.0-1.0); EOSINOPHILS % 0.3 % (0.0-6.0); HEMATOCRIT 28.8 % (34.2-44.1); HEMOGLOBIN 9.2 g/dL (12.0-16.0); LYMPHOCYTES # (AUTO) 0.6 (1.0-3.2); LYMPHOCYTES % 7.7 % (18.0-39.1); MEAN CORPUSCULAR HEMOGLOBIN 31.3 pg (28-32); MEAN CORPUSCULAR HGB CONC 31.9 g/dL (31-35); MONOCYTES # (AUTO) 0.3 (0.2-0.8); NEUTROPHILS # (AUTO) 6.3 (2.1-6.9); NEUTROPHILS % 87.1 % (38.7-80.0); PLATELET COUNT 308 x10e3/uL (140-360); RED BLOOD COUNT 2.94 x10e6/uL (3.6-5.1); RED CELL DISTRIBUTION WIDTH 14.1 % (11.7-14.4)
[2022-11-07 05:40] LABS: ANION GAP 15.2 mmol/L (8-16); CALCIUM 10.2 mg/dL (8.4-10.2); CREATININE, SERUM 1.19 mg/dL (0.57-1.11); POTASSIUM 4.2 mmol/L (3.5-5.1)
[2022-11-07] MEDS: ONDANSETRON HCL INJ 2MG/ML 2ML 2 MG/ML VIAL IV PRN (09:08)
[2022-11-07] MEDS: Morphine 4mg INJECTION 4 MG/ML INJ IV PRN (09:08)
[2022-11-07 11:32] LABS: CREATINE KINASE MB 19.1 ng/mL (0-5.0)
[2022-11-07] MEDS ORDERED: ZOLPIDEM TARTRATE 5 MG TAB PO PRN (13:15)
[2022-11-07] MEDS ORDERED: MORPHINE SULFATE 15MG TAB CR PO PRN (18:45)
[2022-11-07] MEDS ORDERED: DIPHENOXYLATE/ATROPINE TAB PO PRN (18:45)
[2022-11-07] MEDS ORDERED: HALOPERIDOL 1 MG TAB PO PRN (18:45)
[2022-11-07] MEDS ORDERED: ATORVASTATIN 10 MG TAB PO SCH ×2 (21:00)
[2022-11-07] MEDS ORDERED: LETROZOLE 2.5 MG PO SCH (21:00)
[2022-11-07] MEDS ORDERED: DILTIAZEM HCL ER 120 MG CAP PO SCH (21:00)
[2022-11-07] MEDS ORDERED: ZOLPIDEM TARTRATE 5 MG TAB PO SCH (21:00)
[2022-11-08] MEDS: Morphine 4mg INJECTION 4 MG/ML INJ IV PRN
[2022-11-08] MEDS: ONDANSETRON HCL INJ 2MG/ML 2ML 2 MG/ML VIAL IV PRN
[2022-11-08 03:57] VITALS: BP 135/69
[2022-11-08 04:29] VITALS: BP 122/72
[2022-11-08 05:33] LABS: BASOPHILS # (AUTO) 0.1 (0.0-0.1); BASOPHILS % 0.9 % (0.0-1.0); EOSINOPHILS # (AUTO) 0.1 (0.0-0.4); EOSINOPHILS % 1.9 % (0.0-6.0); HEMATOCRIT 29.6 % (34.2-44.1); HEMOGLOBIN 9.4 g/dL (12.0-16.0); LYMPHOCYTES # (AUTO) 1.2 (1.0-3.2); LYMPHOCYTES % 23.2 % (18.0-39.1); MEAN CORPUSCULAR HEMOGLOBIN 31.3 pg (28-32); MEAN CORPUSCULAR HGB CONC 31.8 g/dL (31-35); MEAN CORPUSCULAR VOLUME 98.7 fL (81-99); MONOCYTES # (AUTO) 0.5 (0.2-0.8); MONOCYTES % 9.8 % (4.4-11.3); NEUTROPHILS # (AUTO) 3.4 (2.1-6.9); NEUTROPHILS % 63.6 % (38.7-80.0); PLATELET COUNT 297 x10e3/uL (140-360); RED CELL DISTRIBUTION WIDTH 13.9 % (11.7-14.4)
[2022-11-08 05:43] LABS: ANION GAP 13.1 mmol/L (8-16); CALCIUM 9.9 mg/dL (8.4-10.2); CREATININE, SERUM 1.27 mg/dL (0.57-1.11); POTASSIUM 4.1 mmol/L (3.5-5.1)
[2022-11-08] MEDS ORDERED: LIDOCAINE HCL 2% LOCAL 20 ML VIAL ONE (08:26)
[2022-11-08] MEDS ORDERED: IOPAMIDOL 370 MG/ML 100 ML INFUS..BTL INJ ONE ×2 (08:27→13:22)
[2022-11-08] MEDS ORDERED: HEPARIN SOD/SOD CHLORIDE 2,000 ML ONE (08:27)
[2022-11-08] MEDS ORDERED: SODIUM CHLORIDE 0.9% 1000ML 1,000 ML ONE (08:28)
[2022-11-08] MEDS ORDERED: MIDAZOLAM HCL 2 MG/2 ML VIAL ONE (08:29)
[2022-11-08] MEDS ORDERED: FENTANYL CITRATE/PF 100MCG/2 ML INJ ONE (08:30)
[2022-11-08 08:36] VITALS: BP 131/66
[2022-11-08] MEDS: APIXABAN 5 MG TABLET PO SCH ×2 (09:00→17:44)
[2022-11-08] MEDS: VERZENIO PO SCH ×2 (09:00→17:00)
[2022-11-08] MEDS ORDERED: BREO ELIPTA INH SCH (09:00)
[2022-11-08] MEDS ORDERED: MULTIVITAMINS/MINERALS TAB PO SCH (09:00)
[2022-11-08 10:35] VITALS: BP 131/66
[2022-11-08 12:14] VITALS: BP 125/60
[2022-11-08 15:44] VITALS: BP 103/58
[2022-11-08] MEDS ORDERED: FEMARA 2.5 MG PO SCH (21:00)
== END 2022-11-08 18:08 | disposition home or self-care (01) | DRG 281 ==
LOC: EDBD 16:30 → ER 16:36 → ERHOLD 18:38 → IMCU 19:17 → OBSVTOIN 11-08 08:21
PROVIDERS: ADMIT Family Medicine; ATTEND Family Medicine
PROC: 4A023N7 Measurement of Cardiac Sampling and Pressure, Left Heart, Percutaneous Approach (ICD-10-PCS; principal; 2022-11-08)
PROC: B2111ZZ Fluoroscopy of Multiple Coronary Arteries using Low Osmolar Contrast (ICD-10-PCS; 2022-11-08)
PROC: B2151ZZ Fluoroscopy of Left Heart using Low Osmolar Contrast (ICD-10-PCS; 2022-11-08)
DX: I21.4 Non-ST elevation (NSTEMI) myocardial infarction (principal); C79.51 Secondary malignant neoplasm of bone; C79.81 Secondary malignant neoplasm of breast; J96.10 Chronic respiratory failure, unspecified whether with hypoxia or hypercapnia; I25.10 Atherosclerotic heart disease of native coronary artery without angina pectoris; C50.919 Malignant neoplasm of unspecified site of unspecified female breast; Z99.81 Dependence on supplemental oxygen; G89.3 Neoplasm related pain (acute) (chronic); J43.9 Emphysema, unspecified; I48.91 Unspecified atrial fibrillation; Z20.822 Contact with and (suspected) exposure to COVID-19
CPT/HCPCS: 36415; 71045; 71260; 80048; 80053; 82550; 82553; 83880; 84484; 85025; 93005; 93306; 93458; 94760; 94799; 99152; 99153; 99284; C1887; G0378; J2001; J2250; J2270; J2405; J7030; Q9967

== ENCOUNTER 2023-01-30 14:11 | Inpatient (IN) | payer MEDICARE, OTHER ==
[2023-01-30] VITALS (10 sets, daily range): BP systolic 112–148; BP diastolic 67–121; PULSE 65–143; RESP 20–34; TEMP 98.5; O2SAT 95–99
[~2023-01-30] VITALS: Ht 152.4 cm; Wt 61.2 kg
[~2023-01-30 14:11] MED LIST changes: +HALDOL1 MG PO; +LOMOTIL TABLET1 EACH PO; +MS CONTIN15 MG PO
[2023-01-30] MEDS ORDERED: METHYLPREDNISOLONE SOD SUCC 125 MG/2ML VIAL IV STA (14:15)
[2023-01-30] MEDS ORDERED: SODIUM CHLORIDE 0.9% 500ML 500 ML IV ONE (14:15)
[2023-01-30] MEDS ORDERED: DILTIAZEM HCL 5 MG/ML 5 ML VIAL IV STA ×2 (14:43→15:10)
[2023-01-30 14:54] LABS: BASOPHILS % 0.4 % (0.0-1.0); EOSINOPHILS % 0.2 % (0.0-6.0); HEMATOCRIT 29.7 % (34.2-44.1); HEMOGLOBIN 9.5 g/dL (12.0-16.0); LYMPHOCYTES # (AUTO) 0.5 (1.0-3.2); LYMPHOCYTES % 10.4 % (18.0-39.1); MEAN CORPUSCULAR HEMOGLOBIN 29.3 pg (28-32); MEAN CORPUSCULAR VOLUME 91.7 fL (81-99); MONOCYTES # (AUTO) 0.4 (0.2-0.8); NEUTROPHILS % 80.2 % (38.7-80.0); PLATELET COUNT 251 x10e3/uL (140-360); RED BLOOD COUNT 3.24 x10e6/uL (3.6-5.1); RED CELL DISTRIBUTION WIDTH 15.6 % (11.7-14.4)
[2023-01-30 14:59] LABS: INR 1.2; PROTHROMBIN TIME 15.7 seconds (11.9-14.5)
[2023-01-30 15:00] LABS: PARTIAL THROMBOPLASTIN TIME 25.2 seconds (23.8-35.5)
[2023-01-30] MEDS ORDERED: DILTIAZEM HCL 30 MG TAB PO ONE (15:15)
[2023-01-30] MEDS ORDERED: DILTIAZEM HCL 30 MG TAB ONE (15:15)
[2023-01-30 15:49] LABS: ALBUMIN 3.2 g/dL (3.5-5.0); ALBUMIN/GLOBULIN RATIO 0.9 (0.8-2.0); CALCIUM 9.1 mg/dL (8.4-10.2); CREATININE, SERUM 1.1 mg/dL (0.57-1.11)
[2023-01-30] MEDS ORDERED: IOPAMIDOL 370 MG/ML 100 ML INFUS..BTL INJ ONE (16:12)
[2023-01-30] MEDS ORDERED: AMIODARONE HCL 150 MG/100 ML BAG IV ONE (17:00)
[2023-01-30] MEDS ORDERED: AMIODARONE 900MG 500 ML IV SCH (17:00)
[2023-01-30] MEDS ORDERED: AMIODARONE HCL 150 MG in DEXTROSE 5% 100ML 100 ML IV SCH (17:15)
[2023-01-30] MEDS: ENOXAPARIN SOD INJ 60 MG/0.6 ML SYR SC SCH (17:38)
[2023-01-30] MEDS: FAMOTIDINE 20 MG/2 ML VIAL IV SCH (17:38)
[2023-01-30 19:33] LABS: BACTERIA,URINE MODERATE /HPF; CLARITY,URINE CLEAR (CLEAR); COLOR,URINE YELLOW (YELLOW); KETONES,URINE NEGATIVE (NEGATIVE); LEUKOCYTE ESTERASE ,URINE NEGATIVE (NEGATIVE); NITRITE,URINE NEGATIVE (NEGATIVE); PROTEIN,URINE DIPSTICK NEGATIVE (NEGATIVE); URINE UROBILINOGEN 0.2 mg/dL (0.2 - 1)
[2023-01-30 19:34] LABS: EPITHELIAL CELLS,URINE FEW /LPF; TRANSITIONAL EPI CELLS,URINE FEW
[2023-01-30] MEDS ORDERED: ZOLPIDEM TARTRATE 5 MG TAB PO PRN (20:15)
[2023-01-30] MEDS: ACETAMINOPHEN 325 MG TAB PO PRN (21:08)
[2023-01-30] MEDS: ONDANSETRON HCL INJ 2MG/ML 2ML 2 MG/ML VIAL IV PRN (21:40)
[2023-01-30] MEDS ORDERED: ZIPRASIDONE 20 MG VIAL IM PRN ×2 (22:30→22:45)
[2023-01-30] MEDS ORDERED: DILTIAZEM HCL 5 MG/ML 5 ML VIAL IV ONE (22:30)
[2023-01-31] VITALS (76 sets, daily range): BP systolic 92–164; BP diastolic 51–138; PULSE 23–129; RESP 17–43; TEMP 97.2–99; O2SAT 68–100
[2023-01-31] MEDS ORDERED: DEXMEDETOMIDINE 400MCG/NS100ML 100 ML IV PRN (00:15)
[2023-01-31] MEDS ORDERED: ZOLPIDEM TARTRATE 5 MG TAB PO PRN (01:15)
[2023-01-31] MEDS ORDERED: DIPHENOXYLATE/ATROPINE TAB PO PRN (01:15)
[2023-01-31] MEDS ORDERED: ZIPRASIDONE 20 MG VIAL IM PRN (01:15)
[2023-01-31] MEDS: MORPHINE SULFATE ER 15 MG TAB PO SCH ×2 (01:43→13:12)
[2023-01-31] MEDS ORDERED: AMIODARONE HCL 150 MG/100 ML BAG IV ONE (02:30)
[2023-01-31] MEDS: FAMOTIDINE 20 MG/2 ML VIAL IV SCH ×2 (05:03→18:36)
[2023-01-31] MEDS: ENOXAPARIN SOD INJ 60 MG/0.6 ML SYR SC SCH ×2 (05:03→17:14)
[2023-01-31 05:29] LABS: BASOPHILS % 0.8 % (0.0-1.0); EOSINOPHILS % 0.6 % (0.0-6.0); HEMATOCRIT 28.7 % (34.2-44.1); HEMOGLOBIN 8.9 g/dL (12.0-16.0); LYMPHOCYTES # (AUTO) 0.7 (1.0-3.2); LYMPHOCYTES % 12.9 % (18.0-39.1); MEAN CORPUSCULAR HEMOGLOBIN 28.9 pg (28-32); MEAN CORPUSCULAR VOLUME 93.2 fL (81-99); MONOCYTES # (AUTO) 0.5 (0.2-0.8); MONOCYTES % 8.9 % (4.4-11.3); NEUTROPHILS # (AUTO) 3.8 (2.1-6.9); PLATELET COUNT 230 x10e3/uL (140-360); RED BLOOD COUNT 3.08 x10e6/uL (3.6-5.1); RED CELL DISTRIBUTION WIDTH 15.5 % (11.7-14.4)
[2023-01-31 05:58] LABS: ALBUMIN 3.2 g/dL (3.5-5.0); CALCIUM 9.2 mg/dL (8.4-10.2); CREATININE, SERUM 1.13 mg/dL (0.57-1.11)
[2023-01-31] MEDS: Morphine 4mg INJECTION 4 MG/ML INJ IV PRN ×2 (08:46→21:06)
[2023-01-31] MEDS: ONDANSETRON HCL INJ 2MG/ML 2ML 2 MG/ML VIAL IV PRN (08:46)
[2023-01-31] MEDS: DOCUSATE SODIUM 100 MG CAP PO SCH ×2 (08:47→17:00)
[2023-01-31] MEDS ORDERED: ATORVASTATIN 10 MG TAB PO SCH (09:00)
[2023-01-31] MEDS ORDERED: MULTIVITAMINS/MINERALS TAB PO SCH (09:00)
[2023-01-31] MEDS: LEVALBUTEROL HCL SOLN NEBU 0.63 MG/3 ML NEB INH PRN ×2 (09:29→14:08)
[2023-01-31 10:46] LABS: ABG HCO3 26 mmol/L (22-26); ABG PCO2 36 mmHg (35-45); ABG PH 7.47 (7.35-7.45); ABG PO2 177 mmHg (80-105); ABG TCO2 27
[2023-01-31] MEDS: ACETAMINOPHEN 325 MG TAB PO PRN ×2 (11:24→12:15)
[2023-01-31] MEDS ORDERED: ACETAMINOPHEN 650 MG SUPP PR PRN (12:00)
[2023-01-31] MEDS ORDERED: METOCLOPRAMIDE HCL 10 MG/2ML VIAL IV ONE (12:20)
[2023-01-31] MEDS ORDERED: METOPROLOL TARTRATE INJ 1 MG/ML VIAL IV ONE (12:45)
[2023-01-31] MEDS ORDERED: AMIODARONE 900MG 500 ML IV SCH (17:15)
[2023-01-31] MEDS ORDERED: MELATONIN 3 MG TAB PO SCH (21:00)
[2023-01-31] MEDS ORDERED: DILTIAZEM HCL ER 120 MG CAP PO SCH (21:00)
[2023-02-01] MEDS: MORPHINE SULFATE ER 15 MG TAB PO SCH (01:15)
[2023-02-01] MEDS ORDERED: VASOPRESSIN 60 UNIT in DEXTROSE 5% 50ML 50 ML IV PRN (03:30)
[2023-02-01] MEDS ORDERED: ALBUMIN 25% 25GM 100ML 0.25 GM/ML BTL IV ONE (03:30)
[2023-02-01 03:52] LABS: BASOPHILS % 0.3 % (0.0-1.0); EOSINOPHILS % 0.1 % (0.0-6.0); HEMATOCRIT 33.2 % (34.2-44.1); HEMOGLOBIN 9.5 g/dL (12.0-16.0); LYMPHOCYTES # (AUTO) 0.8 (1.0-3.2); LYMPHOCYTES % 7.3 % (18.0-39.1); MEAN CORPUSCULAR HGB CONC 28.6 g/dL (31-35); MEAN CORPUSCULAR VOLUME 101.2 fL (81-99); MONOCYTES # (AUTO) 0.8 (0.2-0.8); MONOCYTES % 7.3 % (4.4-11.3); NEUTROPHILS # (AUTO) 9.4 (2.1-6.9); NEUTROPHILS % 82.5 % (38.7-80.0); PLATELET COUNT 131 x10e3/uL (140-360); RED BLOOD COUNT 3.28 x10e6/uL (3.6-5.1)
[2023-02-01 04:01] LABS: INR 3.59; PROTHROMBIN TIME 36.1 seconds (11.9-14.5)
[2023-02-01 04:02] LABS: PARTIAL THROMBOPLASTIN TIME 32.7 seconds (23.8-35.5)
[2023-02-01] MEDS ORDERED: DEXTROSE 5% 50ML 100 ML IV ONE (04:03)
[2023-02-01] MEDS ORDERED: VASOPRESSIN INJ 20 UNIT/ML VIAL ONE (04:03)
[2023-02-01] MEDS ORDERED: NOREPINEPHRINE 8 MG/D5W 250 ML 250 ML ONE (04:03)
[2023-02-01 04:12] LABS: ALBUMIN 3.1 g/dL (3.5-5.0); ALBUMIN/GLOBULIN RATIO 0.9 (0.8-2.0); ANION GAP 30.1 mmol/L (8-16); CREATININE, SERUM 2.61 mg/dL (0.57-1.11)
[2023-02-01 04:13] LABS: CALCIUM 18.2 mg/dL (8.4-10.2)
[2023-02-01 04:14] LABS: POTASSIUM 7.1 mmol/L (3.5-5.1)
[2023-02-01] MEDS ORDERED: CALCIUM CHLORIDE 10% 1.36 MEQ/ML 10ML SYR IV STA (04:20)
[2023-02-01] MEDS ORDERED: SODIUM BICARBONATE 8.4% INJ 50 ML SYR IV STA (04:20)
[2023-02-01] MEDS ORDERED: INSULIN REGULAR, HUMAN 100 UNIT/1 ML IV ONE (04:30)
[2023-02-01] MEDS ORDERED: FUROSEMIDE INJ 10 MG/ML 4 ML VIAL IV ONE (04:30)
[2023-02-01] MEDS ORDERED: PROPOFOL IV EMULSION 10MG/ML 100 ML IV PRN (04:30)
[2023-02-01] MEDS ORDERED: SODIUM CHLORIDE 0.9% 1000ML 1,000 ML IV ONE (04:30)
[2023-02-01] MEDS ORDERED: FENTANYL 2000MCG/NS 250 250 ML IV PRN (04:30)
[2023-02-01] MEDS ORDERED: DEXTROSE 50% SYRINGE 50 ML IV ONE (04:30)
[2023-02-01] MEDS ORDERED: DEXTROSE 5% 250ML 250 ML IV ONE (04:42)
[2023-02-01] MEDS ORDERED: EPINEPHRINE HCL 1:1000 1ML 4 MG in DEXTROSE 5% 250ML 250 ML IV SCH (04:45)
[2023-02-01] MEDS: ENOXAPARIN SOD INJ 60 MG/0.6 ML SYR SC SCH (05:00)
[2023-02-01 05:05] VITALS: PULSE 100; RESP 24; O2SAT 64
[2023-02-01 05:25] LABS: ABG HCO3 12 mmol/L (22-26); ABG PCO2 35 mmHg (35-45); ABG PH 7.13 (7.35-7.45); ABG PO2 80 mmHg (80-105); ABG TCO2 13
[2023-02-01 05:29] LABS: ABG HCO3 19 mmol/L (22-26); ABG PCO2 61 mmHg (35-45); ABG PH 7.11 (7.35-7.45); ABG PO2 54 mmHg (80-105); ABG TCO2 21
[2023-02-01] MEDS ORDERED: EPINEPHRINE HCL SYRINGE ONE (06:06)
[2023-02-01] MEDS ORDERED: SODIUM BICARBONATE 8.4% SYRING 100 ML ONE (06:08)
[2023-02-01 06:12] VITALS: PULSE 77; RESP 24; O2SAT 50
== END 2023-02-01 10:20 | disposition expired | DRG 208 ==
LOC: ER 14:16 → ERHOLD 17:10 → ICU 19:44
PROVIDERS: ADMIT Family Medicine; ATTEND Family Medicine
PROC: 02HV33Z Insertion of Infusion Device into Superior Vena Cava, Percutaneous Approach (ICD-10-PCS; 2023-01-31)
PROC: B548ZZA Ultrasonography of Superior Vena Cava, Guidance (ICD-10-PCS; 2023-01-31)
PROC: 5A1935Z Respiratory Ventilation, Less than 24 Consecutive Hours (ICD-10-PCS; principal; 2023-02-01)
PROC: 0BH17EZ Insertion of Endotracheal Airway into Trachea, Via Natural or Artificial Opening (ICD-10-PCS; 2023-02-01)
PROC: 5A12012 Performance of Cardiac Output, Single, Manual (ICD-10-PCS; 2023-02-01)
DX: I26.99 Other pulmonary embolism without acute cor pulmonale (principal); I50.33 Acute on chronic diastolic (congestive) heart failure; C79.51 Secondary malignant neoplasm of bone; J96.11 Chronic respiratory failure with hypoxia; F11.93 Opioid use, unspecified with withdrawal; G93.1 Anoxic brain damage, not elsewhere classified; R57.9 Shock, unspecified; E87.20 Acidosis, unspecified; D64.9 Anemia, unspecified; J44.9 Chronic obstructive pulmonary disease, unspecified; Z66 Do not resuscitate; I48.0 Paroxysmal atrial fibrillation; I46.9 Cardiac arrest, cause unspecified; E78.5 Hyperlipidemia, unspecified; I11.0 Hypertensive heart disease with heart failure; E87.5 Hyperkalemia; M54.9 Dorsalgia, unspecified; G89.29 Other chronic pain; I25.10 Atherosclerotic heart disease of native coronary artery without angina pectoris; Z99.81 Dependence on supplemental oxygen; Z85.3 Personal history of malignant neoplasm of breast; Z87.891 Personal history of nicotine dependence; Z82.49 Family history of ischemic heart disease and other diseases of the circulatory system; Z79.899 Other long term (current) drug therapy; Z88.1 Allergy status to other antibiotic agents; I25.2 Old myocardial infarction; Z98.49 Cataract extraction status, unspecified eye; Z20.822 Contact with and (suspected) exposure to COVID-19
CPT/HCPCS: 31500; 36415; 36569; 36600; 71045; 71260; 80053; 80061; 81001; 82550; 82805; 82948; 83735; 83880; 84443; 84484; 85025; 85379; 85610; 85730; 87040; 87086; 92950; 93005; 93306; 94002; 94003; 94640; 94799; 99285; J0171; J0696; J1650; J1940; J2270; J2405; J2765; J3486; J7030; J7040; J7070; J7799; P9047; Q9967